=== PATIENT | male | born 1935 | race Caucasian/White ===

== ENCOUNTER 2017-06-29 09:00 | Inpatient (IN) ==
[2017-06-29] MEDS ORDERED: ALBUTEROL/IPRATROPIUM 3 ML NEB RESP TX PRN (09:16)
[2017-06-29] MEDS ORDERED: GLUCAGON 1 MG VIAL IM PRN (09:16)
[2017-06-29] MEDS ORDERED: DEXTROSE 50% 25 GM/50 ML VIAL IV PRN (09:16)
[2017-06-29] MEDS ORDERED: BENZONATATE 100 MG CAPSULE PO PRN (09:22)
--- NOTE | 2017-06-29 09:25 | Pulmonology History & Physical ---
History of Present Illness Chief complaint: bronchitis with bronchospasm outpt tx failure possible pneumonia History of present illness: RONAN Sauceda-Rosalind acting as scribe for Dr. Zacarias Palomino. Mr. Gonzalez is an 81 year old /White male admitted today 06/29/17 as a [place] [facility] [place] was seen initially on 06/26/17 by Monisha FERRARO at the office with complaints of increased shortness of breath, cough with white sputum production, and near syncopal episode. He had a temperature of 99.2 at that visit and his WBC count was 12,000 which was felt to be normal r/t his chronic prednisone use. At that time patient had completed a 2 week course of Augmentin, and had recently started Amoxicillin per Dr. Reich. He was seen by Dr. Palomino at that time and Dr. Palomino reviewed his CXR. Dr. Palomino felt like a lot of his symptoms were from GERD with microaspiration and instructed him to continue his antibiotics, increase his prednisone to 10mg daily for 10 days then back to his daily dose of 5mg a day. He was also given an Anoro inhaler for use. He was also educated regarding reflux precautions to prevent reflux and microaspiration. He presented back to see Monisha FERRARO again today with complaints that his symptoms were worse. He admitted continual increased shortness of breath, worsened cough with production of toribio/brown sputum, weakness, and feelings like he cannot catch his breath. 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 Argenis Her. He only held this for 1 week while he was on the Augmentin previously, he was instructed to hold this until further notice at his appointment on 06/26/17. He also has a history of esophageal revision surgery and has not followed with GI for several years. Due to the severity of his symptoms which have been refractory to multiple outpatient treatments and his past medical history decision was made to admit today to inpatient for further evaluation and treatment. He admits fatigue, malaise, night sweats, headaches, shortness of breath, wheezing, cough, and sputum production. He denies any cardiac angina, palpitations, any further near syncopal episodes, dizziness, fever, chills, body aches, hemoptysis, nausea/vomiting/diarrhea, urinary tract symptoms, and symptoms of TIAs. He did admit frequent episodes of reflux. The remainder of the review of systems is negative. ALLERGIES: IVP DYE(per clinic records), REGLAN (per hospital record). Home Medicines: ASA 81mg daily, Ally 180mg daily for allergies, Amaryl 4mg twice a day, Anoro Ellipta 1 puff daily, B complete vitamin daily, Coreg 6.25mg twice a day, Docusate sodium daily, Fish Oil 1,000mg (120mg-180mg) daily, Folic acid 1mg daily except day of methotrexate, Devon 10/325mg three times per day, Lasix 40mg 2 tablets twice a day, Mag64 1 tablet at bedtime, Metformin 500mg twice a day with meals, Robaxin 500mg daily, Multivitamin daily, Neurontin 600mg three times a day, Omeprazole 20mg daily before a meal, Protonix 40mg daily before a meal, Miralax 17g/dose twice a day, Potassium 10meQ daily, Prednisone 5mg BID, Promethazine 25mg q6h as needed, Synthroid 175mcg daily, tramadol 50mg daily, Trazodone 150mg qhs, Methotrexate 10mg once weekly on Wednesdays, Vitamin C 1G daily, Vitamin D3 2,000 units daily. These medications are per his clinic list this morning 06/29/17. The home medications he listed per hospital records has some differences, so I am not sure what he is actually taking. Past History: Anemia, patient has been referred to Hematology by his Ortho Rn Dr. Her but he did not go to this appointment. CAD. CHF. Mitral valve disorder followed by Dr. Patel. Non-insulin dependent diabetes mellitus type II A1c 6.8 in March. 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 GERD. Hyperlipidemia. Hypertension. Hypothyroidism. Obstructive sleep apnea not CPap dependent, but nocturnal o2 dependent. Chronic constipation. History of pneumonia. 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 Knee surgery. Family History: Father had AK, mother had sudden of unknown cause. Social History: High school graduate. . Denies alcohol. Never a smoker. Labs, CXR, and EKG are pending. Home Medications Medication Instructions Recorded Confirmed Type Aspirin [Ecotrin] 81 mg PO DAILY 07/01/15 06/29/17 History B-Complex with Vitamin C [Vitamin 1 each PO BEDTIME 07/01/15 06/29/17 History B-Complex with Vit C] Carvedilol [Coreg] 6.25 mg PO BID 07/01/15 06/29/17 History Cholecalciferol (Vitamin D3) 2,000 unit PO BEDTIME 07/01/15 06/29/17 History [Vitamin D3] Docusate Sodium Cap [Colace Cap] 100 mg PO BEDTIME 07/01/15 06/29/17 History Furosemide Tab [Lasix Tab] 80 mg PO BID DIURETIC 07/01/15 06/29/17 History Gabapentin 600 mg PO TID 07/01/15 06/29/17 History Levothyroxine Tab [Synthroid Tab] 175 mcg PO DAILY 07/01/15 06/29/17 History Magnesium Chloride [Slow Mag] 64 mg PO BEDTIME 07/01/15 06/29/17 History Multivitamin (Centrum) [Centrum 1 tablet PO BEDTIME 07/01/15 06/29/17 History Tab] Smoaks-3 Fatty Acids [Fish Oil 1,000 mg PO BEDTIME 07/01/15 06/29/17 History Concentrate] Pantoprazole Sodium 40 mg PO DAILY 07/01/15 06/29/17 History Ascorbic Acid Tab [Vitamin C Tab] 1,000 mg PO DAILY 08/20/15 06/29/17 History Potassium Chloride [Klor-Con M10] 20 meq PO DAILY 08/20/15 06/29/17 History Glimepiride 4 mg PO BID 11/20/16 06/29/17 History Lactulose Liquid [Chronulac] 15 mg PO DAILY PRN 11/20/16 06/29/17 History Methocarbamol Tab [Robaxin Tab] 500 mg PO DAILY PRN 11/20/16 06/29/17 History Polyethylene Glycol 3350 17 gm PO DAILY 11/20/16 06/29/17 History metFORMIN [Glucophage] 500 mg PO BID 11/20/16 06/29/17 History predniSONE TAB [PredniSONE] 10 mg PO DAILY #21 tablet 11/22/16 06/29/17 Rx Folic Acid 1 mg PO DAILY 06/29/17 06/29/17 History traZODone [Desyrel] 150 mg PO BEDTIME 06/29/17 06/29/17 History Allergies Allergy/AdvReac Type Severity Reaction Status Date / Time iodine Allergy Unknown Verified 12/02/15 17:56 Iodinated Contrast Media - AdvReac Severe Difficulty Verified 01/29/15 10:08 Oral and Breathing [Iodinated Contrast Media - IV Dye] metoclopramide [From Reglan] AdvReac Severe Agitated Verified 01/29/15 10:06 Medical,Surgical,& Family Hx - Medical History Cardio: History of: CHF, CAD, Hypertension Endocrine: History of: Diabetes Mellitus (NIDDM), Thyroid Disorder Respiratory: History of: COPD Renal: History of: Renal Failure Gastrointestinal: History of: GERD Musculoskeletal: History of: Back/Neck Problems (HAS INPLANTED PAIN PUMP) Hematology: No history of: Blood Transfusion Reaction - Surgical History Cardiac Surgeries: Sugical HX of: Cardiac Catheterization, Cardiac Surgery ( bypass 13 years ago) Thoracic Surgeries: Patient denies;: Organ Transplant Abdominal Surgeries: Patient denies: Abdominal Surgery Orthopedic Surgeries: Surgical HX of;: Total Knee Replacement (BILATERAL) - Family History Family History: Reports;: Family Cancer (father), Family Stroke - Social History Smoking Status: Never smoker Results - Labs CBC & BMP: 06/29/17 09:51 06/29/17 09:51 Lab Results: I have reviewed the past 24 hour labs Exam (Pulmonay) H&P - Constitutional Exam: Psychiatric: Awake, alert oriented x 3. Acutely ill appearing. Neurological: Cranial nerves intact with decreased hearing acuity bilaterally. Long tract motor function is intact. Sensory and gait were not tested. HEENT: Pupils, irises, sclera, conjunctiva and eyelids are normal. The face is symmetrical with no rash and no masses. Nares normal. Nasal tubinates are erythematous and swollen. Ears deferred. Lips, tongue, and oral mucosa normal. Pharynx is slightly inflamed. Neck: Symmetrical and kyphotic. Thyroid was not palpated. Lymphatic: No submandibular, cervical, supraclavicular, or epitrochlear adenopathy. Chest: Chest is symmetrical, kyphotic, and slightly hyperinflated. Large airway/ tracheal expiratory wheezing noted with loose large airway congestion. Also has high pitched enc expiratory peripheral wheezing with significant rhonchi heard most prominently in the left base. Heart: Regular rate and rhythm. No murmurs or gallops. Abdomen: Nontender, nondistended, no appreciable organomegaly. Bowel sounds normal. Abdominal obesity is present. Musculoskeletal: Age appropriate loss of the normal curvature of the cervical thoracic and lumbar spine. Extremities: No clubbing. No evidence of deep venous thrombophlebitis. Mild nonpitting pretibial edema present bilaterally. Arterial exam: Carotids decreased. No bruits. Upper and lower extremity pulses palpable. Venous exam: Normal. Skin: Skin of the exposed examined areas no cancerous or infectious lesions. The remainder of the physical exam is negative. Impression: 1. Acute bronchitis with bronchospasm, refractory to outpatient treatment. 2. Severe shortness of breath, productive cough, and wheezing secondary to #1. 3. Bronchospastic airway disease. 4. Possible left lower lung pneumonia, CXR, sputums, and blood cultures are pending. 5. History of COPD/Asthma. 6. Hypertension 7. GERD with suspected microaspiration. 8. Non-insulin dependent type II diabetes mellitus. 9. 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 10. See past history. Plan: 1. Admit to inpatient for further evaluation and treatment. 2. SoluMedrol 62.5mg every 8 hours. Accuchecks AC/HS and PRN with low sliding scale. 3. IV Levaquin and Fortaz due to outpt tx failure. 4. Sputum for gram stain C&S, Blood cultures x 3, Legionella, Cold agglutinins, Labs as ordered. 5. CXR today 6. ID and continue home meds except methotrexate. 7. Strict reflux precautions. 8. See orders.
--- NOTE | 2017-06-29 09:58 | EKG Report ---
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
[2017-06-29 10:16] LABS: Basophils % 0.2 % (0.0-0.8); Hematocrit 28.1 VOL% (42.0-52.0); Hemoglobin 9.6 GM/DL (14.0-18.0); Immature Granulocytes % 2.2 %; Immature Granulocytes Absolute 0.18 #; Lymphocytes # 0.9 10*3/uL (1.4-4.0); Lymphocytes % 10.2 % (21.2-54.2); Mean Corpuscular HGB Conc 34.2 GM/DL (32-36); Mean Corpuscular Hemoglobin 34 PG (27-34); Mean Corpuscular Volume 98.9 FL (87-102); Mean Platelet Volume 12.9 FL (9.6-12.0); Monocytes # 1.1 10*3/uL (0.11-0.8); Monocytes % 13.3 % (1.7-12.7); NRBC # 0.13 10*3/uL; Neutrophils # 6.2 10*3/uL (1.4-7.4); Neutrophils % 74.1 % (38.7-73.9); Platelet Count 174 T/CUMM (130-400); Red Blood Count 2.84 MC/CUMM (3.8-5.5); White Blood Count 8.4 T/CUMM (4-12)
[2017-06-29 11:06] LABS: Albumin 3.6 G/DL (3.4-5.0); Bilirubin,Total 0.5 MG/DL (0.2-1.0); Calcium 8.7 MG/DL (8.5-10.1); Magnesium 1.7 MG/DL (1.8-2.4); Osmolality,Calculated 283.5 MOS/KG (273-304); Potassium 4.3 MMOL/L (3.5-5.1); Total Protein 6.5 G/DL (6.4-8.3)
[2017-06-29] MEDS: ALBUTEROL/IPRATROPIUM 3 ML NEB RESP TX SCH ×3 (11:13→19:07)
[2017-06-29] MEDS: INSULIN LISPRO 100 UNIT/ML SUBCUT SCH ×3 (11:15→21:58)
[2017-06-29] MEDS: methylPREDNISolone SOD SUC 125 MG/2 ML VIAL IV SCH ×3 (11:52→16:32)
[2017-06-29] MEDS: LEVOFLOXACIN INJ 500 MG in PREMIX 1 EACH IV SCH (11:53)
--- NOTE | 2017-06-29 13:43 | XRay Report ---
XR chest 2V Indication: Shortness of breath. Comparison: Chest x-ray 11/20/2016. Technique: PA and lateral chest x-ray was performed. Findings: Moderate cardiomegaly prior sternotomy appears stable. There is been some interval partial clearing of the left lung base with persistent reticular linear interstitial markings noted bilaterally. Airspace opacities in the right cardiophrenic angle also demonstrate minimal improvement. The upper lungs are clear. Remote rib fractures involving the upper right rib cage are stable. Impression: 1. Interval partial clearing of the lung bases may reflect improving atelectasis and/or pulmonary edema. 06/29/2017 1:39 PM PROCEDURE INTERPRETED AT [facility] DEPARTMENT OF RADIOLOGY Final Report Signed by: Dr. Jose Eduardo Pulliam
[2017-06-29] MEDS ORDERED: LACTULOSE 20 GM/30 ML UDCUP PO PRN (15:36)
[2017-06-29] MEDS ORDERED: METHOCARBAMOL 500 MG TABLET PO PRN (15:36)
[2017-06-29 15:49] LABS: Apearance,Urine CLEAR (Clear); Bilirubin,Urine Negative (Negative); Blood, Urine Negative (Negative); Glucose,Urine (UA) Negative (Negative); Ketones,Urine Negative (Negative); Nitrite,Urine Negative (Negative); Protein,Urine Negative; RBC,Urine 1 /HPF (0-4); Urine Color Yellow (Yellow); Urine Specific Gravity 1.009 (1.001-1.035); Urine Urobilinogen < 2.0 EU/DL (0.2-1.0); WBC,Urine 1 /HPF (0-6)
[2017-06-29] MEDS: MAGNESIUM CHLORIDE 64 MG TABLET PO SCH ×2 (16:24→21:49)
[2017-06-29] MEDS: FUROSEMIDE 80 MG TABLET PO SCH (16:24)
[2017-06-29 17:32] LABS: % Iron Saturation 19.4 % (18-50); Ferritin 245.6 ng/ml (26-388)
[2017-06-29 17:38] LABS: Folate > 24.0 NG/ML (5.4-24.0); Vitamin B12 959 PG/ML (211-911)
[2017-06-29] MEDS ORDERED: MAGNESIUM CHLORIDE 64 MG TABLET PO SCH (21:00)
[2017-06-29] MEDS: DOCUSATE SODIUM 100 MG CAPSULE PO SCH (21:47)
[2017-06-29] MEDS: MONTELUKAST 10 MG TABLET PO SCH (21:47)
[2017-06-29] MEDS: CHOLECALCIFEROL 1,000 UNIT TABLET PO SCH (21:48)
[2017-06-29] MEDS: GABAPENTIN 600 MG TABLET PO SCH (21:48)
[2017-06-29] MEDS: CARVEDILOL 6.25 MG TABLET PO SCH (21:49)
[2017-06-29] MEDS: PANTOPRAZOLE 40 MG TABLET PO SCH (21:50)
[2017-06-29] MEDS: GLIMEPIRIDE 4 MG TABLET PO SCH (21:50)
[2017-06-29] MEDS: metFORMIN 500 MG TABLET PO SCH (21:50)
[2017-06-29] MEDS: MULTIVITAMIN (CENTRUM) TABLET PO SCH (21:58)
[2017-06-30] MEDS: methylPREDNISolone SOD SUC 125 MG/2 ML VIAL IV SCH ×4 (01:09→17:07)
[2017-06-30 05:19] LABS: Basophils % 0.1 % (0.0-0.8); Hematocrit 28.5 VOL% (42.0-52.0); Hemoglobin 9.6 GM/DL (14.0-18.0); Immature Granulocytes % 2.9 %; Immature Granulocytes Absolute 0.23 #; Lymphocytes # 0.8 10*3/uL (1.4-4.0); Lymphocytes % 10.4 % (21.2-54.2); Mean Corpuscular HGB Conc 33.7 GM/DL (32-36); Mean Corpuscular Hemoglobin 33 PG (27-34); Mean Corpuscular Volume 98.3 FL (87-102); Mean Platelet Volume 12.7 FL (9.6-12.0); Monocytes # 0.9 10*3/uL (0.11-0.8); Monocytes % 11.2 % (1.7-12.7); NRBC # 0.04 10*3/uL; Neutrophils # 5.9 10*3/uL (1.4-7.4); Neutrophils % 75.4 % (38.7-73.9); Platelet Count 178 T/CUMM (130-400); White Blood Count 7.9 T/CUMM (4-12)
[2017-06-30 05:46] LABS: Calcium 8.7 MG/DL (8.5-10.1); Osmolality,Calculated 283.7 MOS/KG (273-304); Potassium 4.1 MMOL/L (3.5-5.1)
[2017-06-30] MEDS: ALBUTEROL/IPRATROPIUM 3 ML NEB RESP TX SCH ×4 (07:50→19:32)
[2017-06-30] MEDS: GABAPENTIN 600 MG TABLET PO SCH ×3 (08:21→20:40)
[2017-06-30] MEDS: INSULIN LISPRO 100 UNIT/ML SUBCUT SCH ×4 (08:21→20:39)
[2017-06-30] MEDS: LEVOTHYROXINE 175 MCG TABLET PO SCH (08:21)
[2017-06-30] MEDS: GLIMEPIRIDE 4 MG TABLET PO SCH ×2 (08:22→20:40)
[2017-06-30] MEDS: PANTOPRAZOLE 40 MG TABLET PO SCH ×2 (08:22→20:39)
[2017-06-30] MEDS: CARVEDILOL 6.25 MG TABLET PO SCH ×2 (08:22→17:06)
[2017-06-30] MEDS: POTASSIUM CHLORIDE 20 MEQ TABLET PO SCH (08:22)
[2017-06-30] MEDS: metFORMIN 500 MG TABLET PO SCH ×2 (08:22→20:40)
[2017-06-30] MEDS: FOLIC ACID 1 MG TABLET PO SCH (08:22)
[2017-06-30] MEDS: MONTELUKAST 10 MG TABLET PO SCH ×2 (08:22→20:40)
[2017-06-30] MEDS: FUROSEMIDE 80 MG TABLET PO SCH ×2 (08:23→17:06)
[2017-06-30] MEDS: ASPIRIN EC 81 MG TABLET PO SCH (08:23)
[2017-06-30] MEDS: POLYETHYLENE GLYCOL POWDER 17 GM PACK PO SCH (08:27)
[2017-06-30] MEDS: MAGNESIUM CHLORIDE 64 MG TABLET PO SCH ×2 (08:27→20:40)
[2017-06-30] MEDS: LEVOFLOXACIN INJ 500 MG in PREMIX 1 EACH IV SCH (08:54)
--- NOTE | 2017-06-30 12:20 | Pulmonology Progress Note ---
Pulmonary - PN: Subj Interval history: Aram Johns, [facility] acting as scribe for Dr. Zacarias Palomino Mr. Gonzalez is an 81-year-old white male who was [facility]. At the time of admission, our impressions were: 1. Acute bronchitis with bronchospasm, refractory to outpatient treatment. 2. Severe shortness of breath, productive cough, and wheezing secondary to #1. 3. Bronchospastic airway disease. 4. Possible left lower lung pneumonia, CXR, sputums, and blood cultures are pending. 5. History of COPD/Asthma. 6. Hypertension 7. GERD with suspected microaspiration. 8. Non-insulin dependent type II diabetes mellitus. 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 10. See past history. 06/30/2017. The patient was seen today along with a male family member and Sirena Sims RN. Patient states that his respiratory status has already improved in less than 24 hours while being inpatient. Chest x-ray today shows hyperinflation and an acute lingular infiltrate that is more prominent on today' s x-ray done was done [facility]. He is on Fortaz and Levaquin. Sputum Gram stain showed few gram-positive cocci in clusters and pairs and rare gram negative rods. Sputum cultures pending. Blood cultures are negative thus far. He has remained afebrile. Cold agglutinins are negative and Legionella is pending. He is anemic, but iron studies did not reveal iron deficiency anemia. B12 and folate levels are normal. Medications have been reviewed. We made no changes today. Labs been reviewed. White count is 7900 with 75.4% segs; H&H 9.6/28.5; platelet count 178,000; creatinine has improved to 1.10, BUN 30, electrolytes are normal; magnesium was low at 1.7 yesterday and his magnesium dose was increased; urinalysis showed no evidence of infection Exam (Progress Note) - Constitutional Vitals: Period Temp Pulse Resp BP Sys/Malone Pulse Ox Last 24 Hr 97.4 F-98.0 F 60-86 16-20 142-162/73-94 90-99 Exam: Chest is hyperinflated with prolonged expiration but improved wheezing Heart no gallop Abdomen is nontender and nondistended; bowel sounds are positive 4 Extremities with nothing to suggest acute deep venous thrombophlebitis Psychiatric oriented 3 Neurologic long-term motor function is intact Plan: Continue present treatment. Repeat labs in the morning. Repeat chest x- ray on Monday. Follow-up sputum culture when available. See orders. Results - Labs CBC & BMP: 06/30/17 04:57 06/30/17 04:57
[2017-06-30] MEDS: CHOLECALCIFEROL 1,000 UNIT TABLET PO SCH (20:39)
[2017-06-30] MEDS: MULTIVITAMIN (CENTRUM) TABLET PO SCH (20:39)
[2017-06-30] MEDS: DOCUSATE SODIUM 100 MG CAPSULE PO SCH (20:39)
[2017-07-01] MEDS: methylPREDNISolone SOD SUC 125 MG/2 ML VIAL IV SCH ×3 (00:47→17:47)
[2017-07-01 04:35] LABS: Basophils % 0.1 % (0.0-0.8); Hematocrit 30.7 VOL% (42.0-52.0); Hemoglobin 9.9 GM/DL (14.0-18.0); Immature Granulocytes % 2.3 %; Immature Granulocytes Absolute 0.24 #; Lymphocytes # 0.8 10*3/uL (1.4-4.0); Mean Corpuscular HGB Conc 32.2 GM/DL (32-36); Mean Corpuscular Hemoglobin 33 PG (27-34); Mean Platelet Volume 13.8 FL (9.6-12.0); Monocytes # 0.9 10*3/uL (0.11-0.8); Monocytes % 8.7 % (1.7-12.7); NRBC # 0.05 10*3/uL; Neutrophils # 8.3 10*3/uL (1.4-7.4); Neutrophils % 80.9 % (38.7-73.9); Platelet Count 209 T/CUMM (130-400); Red Blood Count 3.04 MC/CUMM (3.8-5.5); Red Cell Distribution Width 20.5 % (9.3-17.3); White Blood Count 10.3 T/CUMM (4-12)
[2017-07-01 05:04] LABS: Calcium 8.8 MG/DL (8.5-10.1); Osmolality,Calculated 285.7 MOS/KG (273-304); Potassium 4.3 MMOL/L (3.5-5.1)
[2017-07-01] MEDS: ALBUTEROL/IPRATROPIUM 3 ML NEB RESP TX SCH ×4 (07:32→19:09)
[2017-07-01] MEDS: PANTOPRAZOLE 40 MG TABLET PO SCH ×2 (08:55→20:53)
[2017-07-01] MEDS: MONTELUKAST 10 MG TABLET PO SCH ×2 (08:55→20:52)
[2017-07-01] MEDS: POTASSIUM CHLORIDE 20 MEQ TABLET PO SCH (08:55)
[2017-07-01] MEDS: metFORMIN 500 MG TABLET PO SCH ×2 (08:55→20:52)
[2017-07-01] MEDS: LEVOTHYROXINE 175 MCG TABLET PO SCH (08:55)
[2017-07-01] MEDS: MAGNESIUM CHLORIDE 64 MG TABLET PO SCH ×2 (08:55→20:52)
[2017-07-01] MEDS: FUROSEMIDE 80 MG TABLET PO SCH ×2 (08:55→15:26)
[2017-07-01] MEDS: GLIMEPIRIDE 4 MG TABLET PO SCH ×2 (08:55→20:52)
[2017-07-01] MEDS: FOLIC ACID 1 MG TABLET PO SCH (08:55)
[2017-07-01] MEDS: GABAPENTIN 600 MG TABLET PO SCH ×3 (08:55→20:52)
[2017-07-01] MEDS: LEVOFLOXACIN INJ 500 MG in PREMIX 1 EACH IV SCH (08:58)
[2017-07-01] MEDS: POLYETHYLENE GLYCOL POWDER 17 GM PACK PO SCH (08:58)
[2017-07-01] MEDS: ASPIRIN EC 81 MG TABLET PO SCH (08:58)
[2017-07-01] MEDS: CARVEDILOL 6.25 MG TABLET PO SCH ×2 (08:58→17:46)
[2017-07-01] MEDS: INSULIN LISPRO 100 UNIT/ML SUBCUT SCH ×4 (09:26→20:55)
--- NOTE | 2017-07-01 16:33 | Pulmonology Progress Note ---
Pulmonary - PN: Subj Interval history: Mr. Gonzalez is an 81-year-old white male who was admitted [facility]/29/[facility]. At the time of admission, our impressions were: 1. Acute bronchitis with bronchospasm, refractory to outpatient treatment. 2. Severe shortness of breath, productive cough, and wheezing secondary to #1. 3. Bronchospastic airway disease. 4. Possible left lower lung pneumonia, CXR, sputums, and blood cultures are pending. 5. History of COPD/Asthma. 6. Hypertension 7. GERD with suspected microaspiration. 8. Non-insulin dependent type II diabetes mellitus. 9. jail use of methotrexate. 10. See past history. 06/30/2017. The patient was seen today along with a male family member and Sirena Sims RN. Patient states that his respiratory status has already improved in less than 24 hours while being inpatient. Chest x-ray today shows hyperinflation and an acute lingular infiltrate that is more prominent on today' s x-ray done was done yesterday at [facility]. He is on Fortaz and Levaquin. Sputum Gram stain showed few gram-positive cocci in clusters and pairs and rare gram negative rods. Sputum cultures pending. Blood cultures are negative thus far. He has remained afebrile. Cold agglutinins are negative and Legionella is pending. He is anemic, but iron studies did not reveal iron deficiency anemia. B12 and folate levels are normal. Medications have been reviewed. We made no changes today. Labs been reviewed. White count is 7900 with 75.4% segs; H&H 9.6/28.5; platelet count 178,000; creatinine has improved to 1.10, BUN 30, electrolytes are normal; magnesium was low at 1.7 yesterday and his magnesium dose was increased; urinalysis showed no evidence of infection 07/01/2017. Patient's quite a bit better today he is been able to get up and walk in the [place]. He still short of breath and has dyspnea on exertion. He is begun to mobilize some sputum. On chest exam he has less wheezing than he had before. There are no positive cultures. Creatinine is 1.202 BUN of 33 electrolytes are normal. CBC is stable. Thyroid function tests are normal range. Vitamin B12 and folic acid are also normal. His iron is low and is being replaced. Exam (Progress Note) - Constitutional Vitals: Period Temp Pulse Resp BP Sys/Malone Pulse Ox Last 24 Hr 97.4 F-98.0 F 60-86 16-20 142-162/73-94 90-99 Exam: Face. Symmetrical. No edema. Neck. Symmetrical. No meningismus. Lymphatics. No submandibular cervical supraclavicular or epitrochlear adenopathy. Chest is hyperinflated with prolonged expiration but improved wheezing Heart no gallop Abdomen is nontender and nondistended; bowel sounds are positive 4 Extremities with nothing to suggest acute deep venous thrombophlebitis Psychiatric oriented 3 Neurologic long-term motor function is intact Plan: 06/30/2017. 1. Continue present treatment. 2. Repeat labs in the morning. 3. Repeat chest x-ray on Monday. 4. Follow-up sputum culture when available. 6. See orders. 07/01/2017. 1. See my note above. 2. Improved exercise tolerance. Exam (Progress Note) - Constitutional Vitals: Period Temp Pulse Resp BP Sys/Malone Pulse Ox Last 24 Hr 97 F-98.3 F 65-77 16-20 138-151/59-75 94-100 Results - Labs CBC & BMP: 07/01/17 02:28 07/01/17 02:28
[2017-07-01] MEDS: MULTIVITAMIN (CENTRUM) TABLET PO SCH (20:52)
[2017-07-01] MEDS: DOCUSATE SODIUM 100 MG CAPSULE PO SCH (20:52)
[2017-07-01] MEDS: CHOLECALCIFEROL 1,000 UNIT TABLET PO SCH (20:52)
[2017-07-01] MEDS: MULTIVITAMIN (BEROCCA) TABLET PO SCH (20:55)
[2017-07-01] MEDS: OMEGA 3 ACID ETHYL ESTERS 1 GM CAPSULE PO SCH (20:55)
[2017-07-02] MEDS: methylPREDNISolone SOD SUC 125 MG/2 ML VIAL IV SCH ×3 (00:33→18:18)
[2017-07-02 06:48] LABS: Basophils % 0.1 % (0.0-0.8); Hemoglobin 9.5 GM/DL (14.0-18.0); Immature Granulocytes % 1.8 %; Immature Granulocytes Absolute 0.22 #; Lymphocytes # 0.5 10*3/uL (1.4-4.0); Lymphocytes % 4.4 % (21.2-54.2); Mean Corpuscular HGB Conc 32.8 GM/DL (32-36); Mean Corpuscular Hemoglobin 33 PG (27-34); Mean Platelet Volume 13.1 FL (9.6-12.0); Monocytes # 0.9 10*3/uL (0.11-0.8); Monocytes % 7.2 % (1.7-12.7); Neutrophils # 10.4 10*3/uL (1.4-7.4); Neutrophils % 86.5 % (38.7-73.9); Platelet Count 188 T/CUMM (130-400); Red Cell Distribution Width 20.7 % (9.3-17.3)
[2017-07-02 07:24] LABS: Calcium 8.2 MG/DL (8.5-10.1); Osmolality,Calculated 292.4 MOS/KG (273-304); Potassium 4.1 MMOL/L (3.5-5.1)
[2017-07-02] MEDS: ALBUTEROL/IPRATROPIUM 3 ML NEB RESP TX SCH ×4 (07:27→20:25)
[2017-07-02 07:28] LABS: Macrocytosis 2+; Platelet Estimate Decreased; Polychromasia Slight; Target Cells Slight
[2017-07-02] MEDS: POTASSIUM CHLORIDE 20 MEQ TABLET PO SCH (08:43)
[2017-07-02] MEDS: MAGNESIUM CHLORIDE 64 MG TABLET PO SCH ×2 (08:43→20:15)
[2017-07-02] MEDS: LEVOTHYROXINE 175 MCG TABLET PO SCH (08:43)
[2017-07-02] MEDS: FOLIC ACID 1 MG TABLET PO SCH (08:43)
[2017-07-02] MEDS: PANTOPRAZOLE 40 MG TABLET PO SCH ×2 (08:44→20:15)
[2017-07-02] MEDS: GABAPENTIN 600 MG TABLET PO SCH ×3 (08:44→20:16)
[2017-07-02] MEDS: GLIMEPIRIDE 4 MG TABLET PO SCH ×2 (08:44→20:16)
[2017-07-02] MEDS: MONTELUKAST 10 MG TABLET PO SCH ×2 (08:44→20:16)
[2017-07-02] MEDS: metFORMIN 500 MG TABLET PO SCH ×2 (08:44→20:15)
[2017-07-02] MEDS: LEVOFLOXACIN INJ 500 MG in PREMIX 1 EACH IV SCH (08:44)
[2017-07-02] MEDS: POLYETHYLENE GLYCOL POWDER 17 GM PACK PO SCH (08:44)
[2017-07-02] MEDS: ASPIRIN EC 81 MG TABLET PO SCH (08:44)
[2017-07-02] MEDS: CARVEDILOL 6.25 MG TABLET PO SCH ×2 (08:44→16:22)
[2017-07-02] MEDS: FUROSEMIDE 80 MG TABLET PO SCH ×2 (08:44→16:22)
[2017-07-02] MEDS: INSULIN LISPRO 100 UNIT/ML SUBCUT SCH ×4 (08:46→20:16)
[2017-07-02] MEDS ORDERED: SODIUM PHOSPHATE ENEMA 133 ML BOTTLE RECTAL PRN (10:14)
[2017-07-02] MEDS: miSOPROStol 200 MCG TABLET PO SCH (11:43)
--- NOTE | 2017-07-02 13:41 | Pulmonology Progress Note ---
Pulmonary - PN: Subj Interval history: Mr. Gonzalez is an 81-year-old white male who was admitted [facility]/29/2017 from [facility]. At the time of admission, our impressions were: 1. Acute bronchitis with bronchospasm, refractory to outpatient treatment. 2. Severe shortness of breath, productive cough, and wheezing secondary to #1. 3. Bronchospastic airway disease. 4. Possible left lower lung pneumonia, CXR, sputums, and blood cultures are pending. 5. History of COPD/Asthma. 6. Hypertension 7. GERD with suspected microaspiration. 8. Non-insulin dependent type II diabetes mellitus. 9. correction use of methotrexate. 10. See past history. 06/30/2017. The patient was seen today along with a male family member and Sirena Sims RN. Patient states that his respiratory status has already improved in less than 24 hours while being inpatient. Chest x-ray today shows hyperinflation and an acute lingular infiltrate that is more prominent on today' s x-ray done was done yesterday at [facility]. He is on Fortaz and Levaquin. Sputum Gram stain showed few gram-positive cocci in clusters and pairs and rare gram negative rods. Sputum cultures pending. Blood cultures are negative thus far. He has remained afebrile. Cold agglutinins are negative and Legionella is pending. He is anemic, but iron studies did not reveal iron deficiency anemia. B12 and folate levels are normal. Medications have been reviewed. We made no changes today. Labs been reviewed. White count is 7900 with 75.4% segs; H&H 9.6/28.5; platelet count 178,000; creatinine has improved to 1.10, BUN 30, electrolytes are normal; magnesium was low at 1.7 yesterday and his magnesium dose was increased; urinalysis showed no evidence of infection 07/01/2017. Patient's quite a bit better today he is been able to get up and walk in the [place]. He still short of breath and has dyspnea on exertion. He is begun to mobilize some sputum. On chest exam he has less wheezing than he had before. There are no positive cultures. Creatinine is 1.202 BUN of 33 electrolytes are normal. CBC is stable. Thyroid function tests are normal range. Vitamin B12 and folic acid are also normal. His iron is low and is being replaced. 07/02/2017. This man continues to improve on a daily basis. He is been able to get up and walk around some. He continues to localize copious amounts of discolored sputum. His fever is resolving. He could be ready for discharge another day or 2. White blood cell count is 12,000 with 86.5 segs. H&H is 9.5/ 30.0. Electrolytes are normal. Creatinine is 1.2 with a BUN of 34. He has some Tashia albicans in his sputum. No bacteria have grown. He is due for follow-up chest x-ray soon and he could be ready for discharge by 07/04/2017 Exam (Progress Note) - Constitutional Vitals: Period Temp Pulse Resp BP Sys/Malone Pulse Ox Last 24 Hr 97.4 F-98.0 F 60-86 16-20 142-162/73-94 90-99 Exam: Face. Symmetrical. No edema. Neck. Symmetrical. No meningismus. Lymphatics. No submandibular cervical supraclavicular or epitrochlear adenopathy. Chest is hyperinflated with prolonged expiration and very little wheezing Heart no gallop Abdomen is nontender and nondistended; bowel sounds are positive 4 Extremities with nothing to suggest acute deep venous thrombophlebitis Psychiatric oriented 3 Neurologic long-term motor function is intact Plan: 06/30/2017. 1. Continue present treatment. 2. Repeat labs in the morning. 3. Repeat chest x-ray on Monday. 4. Follow-up sputum culture when available. 6. See orders. 07/01/2017. 1. See my note above. 2. Improved exercise tolerance. 07/02/2017. 1. See today's note above 2. Anticipate 07/03/2017 discharge. 3. Need follow-up chest Exam (Progress Note) - Constitutional Vitals: Period Temp Pulse Resp BP Sys/Malone Pulse Ox Last 24 Hr 97.1 F-98 F 73-89 18-20 128-150/64-73 90-99 Results - Labs CBC & BMP: 07/02/17 06:26 07/02/17 06:26
[2017-07-02] MEDS: MULTIVITAMIN (CENTRUM) TABLET PO SCH (20:15)
[2017-07-02] MEDS: CHOLECALCIFEROL 1,000 UNIT TABLET PO SCH (20:15)
[2017-07-02] MEDS: MULTIVITAMIN (BEROCCA) TABLET PO SCH (20:16)
[2017-07-02] MEDS: OMEGA 3 ACID ETHYL ESTERS 1 GM CAPSULE PO SCH (20:16)
[2017-07-02] MEDS: DOCUSATE SODIUM 100 MG CAPSULE PO SCH (20:16)
[2017-07-03] MEDS: methylPREDNISolone SOD SUC 125 MG/2 ML VIAL IV SCH ×3 (00:40→17:16)
[2017-07-03] MEDS: ALBUTEROL/IPRATROPIUM 3 ML NEB RESP TX SCH ×4 (08:29→19:16)
[2017-07-03] MEDS: miSOPROStol 200 MCG TABLET PO SCH (09:10)
[2017-07-03] MEDS: MAGNESIUM CHLORIDE 64 MG TABLET PO SCH ×2 (09:10→21:52)
[2017-07-03] MEDS: GLIMEPIRIDE 4 MG TABLET PO SCH ×2 (09:10→21:52)
[2017-07-03] MEDS: CARVEDILOL 6.25 MG TABLET PO SCH ×2 (09:10→16:40)
[2017-07-03] MEDS: INSULIN LISPRO 100 UNIT/ML SUBCUT SCH ×4 (09:11→21:53)
[2017-07-03] MEDS: FOLIC ACID 1 MG TABLET PO SCH (09:11)
[2017-07-03] MEDS: FUROSEMIDE 80 MG TABLET PO SCH ×2 (09:11→16:39)
[2017-07-03] MEDS: LEVOTHYROXINE 175 MCG TABLET PO SCH (09:11)
[2017-07-03] MEDS: MONTELUKAST 10 MG TABLET PO SCH ×2 (09:11→21:52)
[2017-07-03] MEDS: ASPIRIN EC 81 MG TABLET PO SCH (09:11)
[2017-07-03] MEDS: metFORMIN 500 MG TABLET PO SCH ×2 (09:11→21:52)
[2017-07-03] MEDS: GABAPENTIN 600 MG TABLET PO SCH ×3 (09:11→21:51)
[2017-07-03] MEDS: POTASSIUM CHLORIDE 20 MEQ TABLET PO SCH (09:11)
[2017-07-03] MEDS: PANTOPRAZOLE 40 MG TABLET PO SCH ×2 (09:11→21:53)
[2017-07-03] MEDS: LEVOFLOXACIN INJ 500 MG in PREMIX 1 EACH IV SCH (09:13)
[2017-07-03] MEDS: POLYETHYLENE GLYCOL POWDER 17 GM PACK PO SCH (09:13)
--- NOTE | 2017-07-03 10:16 | XRay Report ---
2 view chest July 03, 2017 0706 hours Indication: Shortness of breath Comparison: June 29, 2017 at 1334 hours Findings: Cardiomediastinal contours are stable. Chronic coarsening of the interstitium with persistent stranding bibasilar densities, unchanged in the interim. No acute osseous abnormalities. Visualized upper abdomen demonstrates no acute pathology. Impression: Chronic interstitial changes bilaterally. Residual stranding and volume loss within lung bases, likely atelectasis. Infectious process not excluded. PROCEDURE INTERPRETED AT [facility] DEPARTMENT OF RADIOLOGY Final Report Signed by: Jose Eduardo Art
--- NOTE | 2017-07-03 11:22 | Pulmonology Progress Note ---
Pulmonary - PN: Subj Interval history: Mr. Gonzalez is an 81-year-old white male who was [facility]. At the time of admission, our impressions were: 1. Acute bronchitis with bronchospasm, refractory to outpatient treatment. 2. Severe shortness of breath, productive cough, and wheezing secondary to #1. 3. Bronchospastic airway disease. 4. Possible left lower lung pneumonia, CXR, sputums, and blood cultures are pending. 5. History of COPD/Asthma. 6. Hypertension 7. GERD with suspected microaspiration. 8. Non-insulin dependent type II diabetes mellitus. 9. assisted use of methotrexate. 10. See past history. 06/30/2017. The patient was seen today along with a male family member and Sirena Sims RN. Patient states that his respiratory status has already improved in less than 24 hours while being inpatient. Chest x-ray today shows hyperinflation and an acute lingular infiltrate that is more prominent on today' s x-ray done was done yesterday at [facility]. He is on Fortaz and Levaquin. Sputum Gram stain showed few gram-positive cocci in clusters and pairs and rare gram negative rods. Sputum cultures pending. Blood cultures are negative thus far. He has remained afebrile. Cold agglutinins are negative and Legionella is pending. He is anemic, but iron studies did not reveal iron deficiency anemia. B12 and folate levels are normal. Medications have been reviewed. We made no changes today. Labs been reviewed. White count is 7900 with 75.4% segs; H&H 9.6/28.5; platelet count 178,000; creatinine has improved to 1.10, BUN 30, electrolytes are normal; magnesium was low at 1.7 yesterday and his magnesium dose was increased; urinalysis showed no evidence of infection 07/01/2017. Patient's quite a bit better today he is been able to get up and walk in the [place]. He still short of breath and has dyspnea on exertion. He is begun to mobilize some sputum. On chest exam he has less wheezing than he had before. There are no positive cultures. Creatinine is 1.202 BUN of 33 electrolytes are normal. CBC is stable. Thyroid function tests are normal range. Vitamin B12 and folic acid are also normal. His iron is low and is being replaced. 07/02/2017. This man continues to improve on a daily basis. He is been able to get up and walk around some. He continues to localize copious amounts of discolored sputum. His fever is resolving. He could be ready for discharge another day or 2. White blood cell count is 12,000 with 86.5 segs. H&H is 9.5/ 30.0. Electrolytes are normal. Creatinine is 1.2 with a BUN of 34. He has some Tashia albicans in his sputum. No bacteria have grown. He is due for follow-up chest x-ray soon and he could be ready for discharge by 07/04/2017 07/03/2017. This patient continues to clinically improve on a daily basis. He is up and moving around his chest secondary clear. He has a very prominent hilum with scarring. Interstitial like scarring extends inferiorly several centimeters below the hilum there benign calcifications associated with this. He has a faint residual right lower lung infiltrate. These changes have been present for more than a year and are benign. Glucose is under fair control he should drop with decreasing his steroid dose. I have told the patient that he will probably be discharged tomorrow. Patient says this is the best his breathing has been in quite some time Exam (Progress Note) - Constitutional Vitals: Period Temp Pulse Resp BP Sys/Malone Pulse Ox Last 24 Hr 97.4 F-98.0 F 60-86 16-20 142-162/73-94 90-99 Exam: Face. Symmetrical. No edema. Neck. Symmetrical. No meningismus. Lymphatics. No submandibular cervical supraclavicular or epitrochlear adenopathy. Chest is hyperinflated with moderate prolongation of expiration. I hear absolutely no wheeze today. Heart no gallop Abdomen is nontender and nondistended; bowel sounds are positive 4 Extremities with nothing to suggest acute deep venous thrombophlebitis Psychiatric oriented 3 Neurologic long-term motor function is intact Plan: 06/30/2017. 1. Continue present treatment. 2. Repeat labs in the morning. 3. Repeat chest x-ray on Monday. 4. Follow-up sputum culture when available. 6. See orders. 07/01/2017. 1. See my note above. 2. Improved exercise tolerance. 07/02/2017. 1. See today's note above 2. Anticipate 07/03/2017 discharge. 3. Need follow-up chest 07/03/2017. 1. See today's note above 2. Possible discharge tomorrow 3. We will reduce steroids prior to discharge Exam (Progress Note) - Constitutional Vitals: Period Temp Pulse Resp BP Sys/Malone Pulse Ox Last 24 Hr 96.8 F-97.9 F 71-90 16-25 111-142/62-99 90-99 Results - Labs CBC & BMP: 07/02/17 06:26 07/02/17 06:26
[2017-07-03] MEDS: CHOLECALCIFEROL 1,000 UNIT TABLET PO SCH (21:51)
[2017-07-03] MEDS: MULTIVITAMIN (CENTRUM) TABLET PO SCH (21:51)
[2017-07-03] MEDS: MULTIVITAMIN (BEROCCA) TABLET PO SCH (21:52)
[2017-07-03] MEDS: DOCUSATE SODIUM 100 MG CAPSULE PO SCH (21:52)
[2017-07-03] MEDS: OMEGA 3 ACID ETHYL ESTERS 1 GM CAPSULE PO SCH (21:52)
[2017-07-04] MEDS: methylPREDNISolone SOD SUC 125 MG/2 ML VIAL IV SCH ×2 (00:30→09:39)
[2017-07-04] MEDS: ALBUTEROL/IPRATROPIUM 3 ML NEB RESP TX SCH ×2 (07:33→11:02)
[2017-07-04] MEDS: LEVOFLOXACIN INJ 500 MG in PREMIX 1 EACH IV SCH (09:37)
[2017-07-04] MEDS: metFORMIN 500 MG TABLET PO SCH (09:39)
[2017-07-04] MEDS: miSOPROStol 200 MCG TABLET PO SCH (09:39)
[2017-07-04] MEDS: POTASSIUM CHLORIDE 20 MEQ TABLET PO SCH (09:40)
[2017-07-04] MEDS: GABAPENTIN 600 MG TABLET PO SCH (09:40)
[2017-07-04] MEDS: FUROSEMIDE 80 MG TABLET PO SCH (09:40)
[2017-07-04] MEDS: MAGNESIUM CHLORIDE 64 MG TABLET PO SCH (09:40)
[2017-07-04] MEDS: ASPIRIN EC 81 MG TABLET PO SCH (09:40)
[2017-07-04] MEDS: MONTELUKAST 10 MG TABLET PO SCH (09:40)
[2017-07-04] MEDS: PANTOPRAZOLE 40 MG TABLET PO SCH (09:40)
[2017-07-04] MEDS: FOLIC ACID 1 MG TABLET PO SCH (09:40)
[2017-07-04] MEDS: INSULIN LISPRO 100 UNIT/ML SUBCUT SCH ×2 (09:41→11:51)
[2017-07-04] MEDS: CARVEDILOL 6.25 MG TABLET PO SCH (09:41)
[2017-07-04] MEDS: GLIMEPIRIDE 4 MG TABLET PO SCH (09:41)
[2017-07-04] MEDS: LEVOTHYROXINE 175 MCG TABLET PO SCH (09:41)
[2017-07-04] MEDS: POLYETHYLENE GLYCOL POWDER 17 GM PACK PO SCH (09:42)
[2017-07-04 12:26] VITALS: BP 152/74
--- NOTE | 2017-07-04 12:39 | Pulmonology Progress Note ---
Pulmonary - PN: Subj Interval history: Aram Johns, [facility]-, acting as scribe for Dr. Zacarias Palomino Mr. Gonzalez is an 81-year-old white male who was admitted 06/29/2017 from [facility]. At the time of admission, our impressions were: 1. Acute bronchitis with bronchospasm, refractory to outpatient treatment. 2. Severe shortness of breath, productive cough, and wheezing secondary to #1. 3. Bronchospastic airway disease. 4. Possible left lower lung pneumonia, CXR, sputums, and blood cultures are pending. 5. History of COPD/Asthma. 6. Hypertension 7. GERD with suspected microaspiration. 8. Non-insulin dependent type II diabetes mellitus. 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 10. See past history. 06/30/2017. The patient was seen today along with a male family member and Sirena Sims RN. Patient states that his respiratory status has already improved in less than 24 hours while being inpatient. Chest x-ray today shows hyperinflation and an acute lingular infiltrate that is more prominent on today' s x-ray done was done yesterday at [facility]. He is on Fortaz and Levaquin. Sputum Gram stain showed few gram-positive cocci in clusters and pairs and rare gram negative rods. Sputum cultures pending. Blood cultures are negative thus far. He has remained afebrile. Cold agglutinins are negative and Legionella is pending. He is anemic, but iron studies did not reveal iron deficiency anemia. B12 and folate levels are normal. Medications have been reviewed. We made no changes today. Labs been reviewed. White count is 7900 with 75.4% segs; H&H 9.6/28.5; platelet count 178,000; creatinine has improved to 1.10, BUN 30, electrolytes are normal; magnesium was low at 1.7 yesterday and his magnesium dose was increased; urinalysis showed no evidence of infection 07/01/2017. Patient's quite a bit better today he is been able to get up and walk in the [place]. He still short of breath and has dyspnea on exertion. He is begun to mobilize some sputum. On chest exam he has less wheezing than he had before. There are no positive cultures. Creatinine is 1.202 BUN of 33 electrolytes are normal. CBC is stable. Thyroid function tests are normal range. Vitamin B12 and folic acid are also normal. His iron is low and is being replaced. 07/02/2017. This man continues to improve on a daily basis. He is been able to get up and walk around some. He continues to localize copious amounts of discolored sputum. His fever is resolving. He could be ready for discharge another day or 2. White blood cell count is 12,000 with 86.5 segs. H&H is 9.5/ 30.0. Electrolytes are normal. Creatinine is 1.2 with a BUN of 34. He has some Tashia albicans in his sputum. No bacteria have grown. He is due for follow-up chest x-ray soon and he could be ready for discharge by 07/04/2017 07/03/2017. This patient continues to clinically improve on a daily basis. He is up and moving around his chest secondary clear. He has a very prominent hilum with scarring. Interstitial like scarring extends inferiorly several centimeters below the hilum there benign calcifications associated with this. He has a faint residual right lower lung infiltrate. These changes have been present for more than a year and are benign. Glucose is under fair control he should drop with decreasing his steroid dose. I have told the patient that he will probably be discharged tomorrow. Patient says this is the best his breathing has been in quite some time. 07/04/2017. The patient was seen today along with his and Erika Jimenez RN. The patient continues to do well from a pulmonary standpoint. He again stated that this is the best his breathing has been in quite some time. Chest x-ray continues to show big hilum and scarring in the right lower lobe but this has been present for many years on review of previous x-rays and has been stable. Sputum has only grown Tashia albicans, but this was not a Tashia pneumonia. He will be treated with Diflucan for 7 days upon discharge. We discussed discharge medications with patient and his . As an outpatient, he is on methotrexate as per his child development professor for psoriasis. We have instructed him to stay off the methotrexate while on prednisone. He can restart methotrexate once his prednisone taper has been completed. He verbalized understanding. He will follow-up with Monisha Palumbo, nurse practitioner, in approximately 2 weeks , but could be seen sooner if needed. Medications have been reviewed. Labs been reviewed. Exam (Progress Note) - Constitutional Vitals: Period Temp Pulse Resp BP Sys/Malone Pulse Ox Last 24 Hr 96.7 F-97.8 F 61-81 16-20 127-152/62-85 92-100 Exam: Chest is hyperinflated with prolonged expiration, but wheeze free Heart no gallop Abdomen is nontender and nondistended; bowel sounds are positive 4 Extremities with nothing to suggest acute deep venous thrombophlebitis Psychiatric oriented 3 Neurologic long-term motor function is intact Plan: The patient has now met maximum hospital benefit and can be discharged home. Please see the discharge summary for more information. Results - Labs CBC & BMP: 07/02/17 06:26 07/02/17 06:26
--- NOTE | 2017-07-04 12:50 | Discharge Summary ---
Hospital Course - Hospital Course Hospital Course: Aram Johns, [facility], acting as scribe for Dr. Zacarias Palomino Mr. Gonzalez is an 81-year-old white male from [place], [place], who is admitted 06/29/2017 from [facility]. He was initially seen 2016 by Monisha Palumbo, nurse practitioner, at [facility] with complaints of increased shortness of breath, cough with white sputum, and a near syncopal episode. The patient was febrile with temperature of 99.2 and his white count was elevated at 12,000. He has completed a two-week course of Augmentin and had recently started amoxicillin per Dr. Donovan Reich. It was felt that much of his symptoms at that time were secondary to gastroesophageal reflux with microaspiration and he was instructed to continue his antibiotics and increased his prednisone. He presented back to casey sadler, nurse practitioner, the day of admission with complaints of worsening symptoms. He admitted continued increased shortness of breath, worsening cough with discolored sputum, weakness, and dyspnea. Because of the worsening of his symptoms, outpatient treatment failure status, chronic illnesses, and advanced age, it was felt in his best interest to hospitalize him for further evaluation and care. The patient was admitted and started on IV antibiotics of Fortaz and Levaquin. The day after admission, with rehydration, chest x-ray showed an acute lingular infiltrate in the faint right lower lung infiltrate. Sputum Gram stain showed few gram-positive cocci in clusters and pairs as well as gram-negative rods. Sputum culture, however, only grew Tashia albicans, but this was not a Tashia pneumonia. Nonetheless, with these antibiotics the patient's symptoms markedly improved. At discharge, his chest x-ray continues to show an enlarged hilum and scarring in the right lower lobe, however, this is been present for many years on review of old x-rays and has been stable. The infiltrates have resolved. He has remained afebrile and his cough is no longer productive of discolored sputum. He is now wheeze free and he no longer has dyspnea on exertion. Cold agglutinins were negative and Legionella is pending at the time of discharge. This patient has known psoriasis and is followed from dermatology standpoint by Dr. Argenis Her. She has had the patient on methotrexate. We have instructed him that while he is on prednisone he should not take the methotrexate. However, once his tapering dose of prednisone has been completed he can restart the methotrexate. He verbalized understanding. At discharge, white count is 12,000 with 86.5% segs, 4.4% lymphs, and 7.2% monos ; H&H 9.5/29.0 with normal indices and increased red blood cell distribution with; platelet count 188,000; creatinine 1.20, BUN 34, sodium 140, potassium 4.1 , magnesium 2.3; vitamin B12 level 959, folate greater than 24.0; iron 58, iron sat 19.4%, total iron-binding capacity 299; calcium 8.7, albumin 3.6, total protein 6.5; liver function tests within normal limits; TSH is low at 0.284, but free T4 is normal at 1.30; urinalysis showed no evidence of infection. For more information regarding Mr. Gonzalez's past medical history, family history, social history, admit labs, admit x-ray and admit exam, please see the admission note dated 06/29/2017. Impression: 1. Acute bronchitis with bronchospasm, refractory to outpatient treatment. 2. Severe shortness of breath, productive cough, and wheezing secondary to #1. 3. Bronchospastic airway disease. 4. Acute lingular and right lower lung infiltrates--- resolved 5. History of COPD/Asthma. 6. Hypertension 7. GERD with suspected microaspiration. 8. Non-insulin dependent type II diabetes mellitus. 9. residential use of methotrexate secondary to psoriasis 10. See past history. Plan: Prednisone 10 mg daily for 10 days then 10 mg every other day for 10 doses , Diflucan 100 mg daily for 7 days, Levaquin 500 mg daily for 7 days, Ceftin 500 mg twice daily for 7 days, aspirin 81 mg daily, Tessalon 200 mg 3 times daily as needed cough, Coreg 6.25 mg twice daily, vitamin D3 2000 units at bedtime, folic acid 1 mg daily, Lasix 80 mg twice daily, Neurontin 600 mg 3 times daily, Amaryl 4 mg twice daily, Mucinex 600 mg twice daily, multivitamin bedtime, Synthroid 175 mg before breakfast, Slow-Mag 64 mg twice daily, Glucophage 500 mg twice daily, Robaxin 500 mg daily as needed, Cytotec 200 mcg daily, Singulair 10 mg twice daily, Protonix 40 mg twice daily, Chronulac 15 mg daily as needed, K-Dur 20 milliequivalents daily, trazodone 150 mg at bedtime, vitamin C 1000 mg daily, MiraLAX 17 g daily, Fish oil 1000 mg at bedtime, B complex with vitamin C 1 tablet at bedtime, and Colace 100 mg at bedtime. He will be scheduled to follow-up with Monisha Palumbo, nurse practitioner, in approximately 2 weeks. He can be seen sooner if needed. Specialty Discharge - Follow Up or Referrals Follow up with: Monisha Palumbo, [employer] MA[employer] [Advanced Practice Nurse] - 2 Weeks () Discharge Plan - Discharge Data Disposition: Disch To Home/Self Care Condition at Discharge: Stable - Discharge Medications New Fluconazole Tab [Diflucan Tab] 100 mg PO DAILY #7 tablet Levofloxacin Tab [Levaquin Tab] 500 mg PO DAILY #7 tablet Montelukast Tab [Singulair Tab] 10 mg PO BID #60 tablet Pantoprazole Tab [Protonix Tab] 40 mg PO BID #60 tablet cefUROXime axetil [Cefuroxime] 500 mg PO BID #14 tablet miSOPROStol [Cytotec] 200 mcg PO DAILY #30 tablet predniSONE TAB [PredniSONE] 10 mg PO DIRECTED #20 tablet Benzonatate [Tessalon] 200 mg PO TID PRN #60 capsule PRN Reason: Cough Magnesium Chloride [Slow Mag] 64 mg PO BID #60 tablet guaiFENesin ER TAB [Mucinex] 600 mg PO BID #60 tablet Continue Carvedilol [Coreg] 6.25 mg PO BID Levothyroxine Tab [Synthroid Tab] 175 mcg PO DAILY Furosemide Tab [Lasix Tab] 80 mg PO BID DIURETIC [place]-3 Fatty Acids [Fish Oil Concentrate] 1,000 mg PO BEDTIME Gabapentin 600 mg PO TID Multivitamin (Centrum) [Centrum Tab] 1 tablet PO BEDTIME B-Complex with Vitamin C [Vitamin B-Complex with Vit C] 1 each PO BEDTIME Aspirin [Ecotrin] 81 mg PO DAILY Docusate Sodium Cap [Colace Cap] 100 mg PO BEDTIME Cholecalciferol (Vitamin D3) [Vitamin D3] 2,000 unit PO BEDTIME Ascorbic Acid Tab [Vitamin C Tab] 1,000 mg PO DAILY Potassium Chloride [Klor-Con M10] 20 meq PO DAILY Glimepiride 4 mg PO BID Lactulose Liquid [Chronulac] 15 mg PO DAILY PRN PRN Reason: Constipation metFORMIN [Glucophage] 500 mg PO BID Methocarbamol Tab [Robaxin Tab] 500 mg PO DAILY PRN PRN Reason: Pain Polyethylene Glycol 3350 17 gm PO DAILY Folic Acid 1 mg PO DAILY traZODone [Desyrel] 150 mg PO BEDTIME Discontinued Pantoprazole Sodium 40 mg PO DAILY Magnesium Chloride [Slow Mag] 64 mg PO BEDTIME predniSONE TAB [PredniSONE] 10 mg PO DAILY #21 tablet - Follow Up or Referral - Forms/Instructions Exam - Constitutional Vitals: Period Temp Pulse Resp BP Sys/Malone Pulse Ox Last 24 Hr 96.7 F-97.8 F 61-81 16-20 127-152/62-85 92-100 Discharge Results Procedures and tests throughout hospitalization: Pending Orders 06/29/17 09:51 Legionella Pneumophilia Ab Routine 07/02/17 08:19 Sputum Culture and Gram Stain Routine Labs on day of discharge: Labs from last 24 hours 07/04/17 07/04/17 07/03/17 11:47 07:18 20:22 POC Glucose 236 H 349 H 305 H 07/03/17 15:59 POC Glucose 278 H Preliminary micro results at discharge 07/02/17 08:19 Sputum Culture - Preliminary Sputum Yeast DS: Provider Date of admission: 06/29/17 09:20 Primary care physician: Konstantin Smith DO Attending physician on admission: Zacarias Palomino MD Consults: 06/29/17 09:55 Consult to Dietitian [CONS] Routine Reason for Dietitian: Other Consult Comment: Weight loss Discharging clinician: GENO Moncada
== END 2017-07-04 14:28 | disposition home or self-care (01) | DRG 192 ==
LOC: N.5E 09:20
PROVIDERS: ADMIT Internal Medicine Pulmonary Disease; ATTEND Internal Medicine Pulmonary Disease

== ENCOUNTER 2018-08-26 13:16 | Inpatient (IN) ==
[2018-08-26] MEDS ORDERED: ONDANSETRON 4 MG/2 ML VIAL IV STA (13:39)
[2018-08-26] MEDS ORDERED: MORPHINE 4 MG/1 ML VIAL IV STA (13:39)
[2018-08-26 14:20] LABS: Basophils # 0.1 10*3/uL (0.0-0.2); Basophils % 0.5 % (0.0-0.8); Eosinophils # 0.3 10*3/uL (0.0-0.87); Eosinophils % 1.8 % (0.00-10.9); Hematocrit 37.3 VOL% (42.0-52.0); Immature Granulocytes % 0.9 %; Immature Granulocytes Absolute 0.13 #; Lymphocytes # 1.1 10*3/uL (1.4-4.0); Lymphocytes % 7.6 % (21.2-54.2); Mean Corpuscular HGB Conc 32.2 GM/DL (32-36); Mean Corpuscular Hemoglobin 33 PG (27-34); Mean Corpuscular Volume 101.4 FL (87-102); Monocytes # 2.5 10*3/uL (0.11-0.8); Monocytes % 16.7 % (1.7-12.7); NRBC # 0.02 10*3/uL; Neutrophils # 10.8 10*3/uL (1.4-7.4); Neutrophils % 72.5 % (38.7-73.9); Platelet Count 164 T/CUMM (130-400); Red Blood Count 3.68 MC/CUMM (3.8-5.5); White Blood Count 14.8 T/CUMM (4-12)
[2018-08-26 14:31] LABS: INR 1.1; PT Patient Result 11.6 SECS; Partial Thromboplastin Time 24.2 SECS (0-40)
[2018-08-26 14:48] LABS: Albumin 4.1 G/DL (3.4-5.0); Bilirubin,Total 0.9 MG/DL (0.2-1.0); Calcium 9.5 MG/DL (8.5-10.1); Total Protein 7.3 G/DL (6.4-8.3)
[2018-08-26 14:56] LABS: Potassium 2.5 MMOL/L (3.5-5.1)
[2018-08-26] MEDS ORDERED: FUROSEMIDE 40 MG/4 ML VIAL IV STA (14:56)
[2018-08-26] MEDS ORDERED: POTASSIUM CHLORIDE 20 MEQ TABLET PO STA (14:57)
[2018-08-26 16:02] LABS: Apearance,Urine Slightly Hazy (Clear); Bacteria,Urine Occasional /HPF (Few); Bilirubin,Urine Negative (Negative); Blood, Urine Negative (Negative); Glucose,Urine (UA) Negative (Negative); Hyaline Casts,Urine 1 /LPF (0-3); Ketones,Urine Negative (Negative); Nitrite,Urine Negative (Negative); Protein,Urine Negative; RBC,Urine <1 /HPF (0-4); Urine Color Yellow (Yellow); Urine Specific Gravity 1.008 (1.001-1.035); Urine Urobilinogen < 2.0 EU/DL (0.2-1.0); WBC,Urine 1 /HPF (0-6)
[2018-08-26] MEDS ORDERED: ONDANSETRON 4 MG/2 ML VIAL IV PRN (16:35)
[2018-08-26] MEDS ORDERED: DEXTROSE 50% 25 GM/50 ML VIAL IV PRN (16:35)
[2018-08-26] MEDS ORDERED: GLUCAGON 1 MG VIAL IM PRN (16:35)
[2018-08-26] MEDS ORDERED: metOLazone 5 MG TABLET PO PRN (16:37)
[2018-08-26] MEDS ORDERED: LACTULOSE 20 GM/30 ML UDCUP PO PRN (16:37)
[2018-08-26] MEDS ORDERED: MAGNESIUM SULF RIDER 2 GM in PREMIX 1 EACH IV PRN (16:40)
[2018-08-26] MEDS ORDERED: MAGNESIUM SULF RIDER 4 GM in PREMIX 1 EACH IV PRN (16:40)
[2018-08-26 17:48] LABS: Risk Ratio 3.91; Thyroid Stimulating Hormone 0.417 uIU/ml (0.358-3.74); VLDL CHOLESTEROL 21.6 MG/DL
[2018-08-26 18:29] LABS: Band Neutrophils 1 % (0-10); Lymphocytes 7 % (20-55); Platelet Estimate Normal; Segmented Neutrophils 78 % (50-85); Total Cells Counted 100
[2018-08-26] MEDS: ALBUTEROL/IPRATROPIUM 3 ML NEB RESP TX SCH (20:10)
[2018-08-26] MEDS ORDERED: HEPARIN 5,000 UNIT/1 ML VIAL SUBCUT SCH (21:00)
[2018-08-26] MEDS: OMEGA 3 ACID ETHYL ESTERS 1 GM CAPSULE PO SCH (21:13)
[2018-08-26] MEDS: CHOLECALCIFEROL 1,000 UNIT TABLET PO SCH (21:13)
[2018-08-26] MEDS: GLIMEPIRIDE 4 MG TABLET PO SCH (21:14)
[2018-08-26] MEDS: MAGNESIUM CHLORIDE 64 MG TABLET PO SCH (21:14)
[2018-08-26] MEDS: metFORMIN 500 MG TABLET PO SCH (21:14)
[2018-08-26] MEDS: MONTELUKAST 10 MG TABLET PO SCH (21:15)
[2018-08-26] MEDS: GABAPENTIN 600 MG TABLET PO SCH (21:15)
[2018-08-26] MEDS: DOCUSATE SODIUM 100 MG CAPSULE PO SCH (21:15)
[2018-08-26] MEDS: MULTIVITAMIN (BEROCCA) TABLET PO SCH (21:15)
[2018-08-26] MEDS: CARVEDILOL 6.25 MG TABLET PO SCH (21:15)
[2018-08-26] MEDS: PANTOPRAZOLE 40 MG TABLET PO SCH (21:16)
[2018-08-26] MEDS: ALLOPURINOL 100 MG TABLET PO SCH (21:16)
[2018-08-26] MEDS: POTASSIUM CHLORIDE 20 MEQ TABLET PO SCH (21:17)
[2018-08-26] MEDS: ENOXAPARIN 40 MG/0.4 ML SYRINGE SUBCUT SCH (21:18)
[2018-08-26] MEDS: INSULIN REGULAR 100 UNIT/ML SUBCUT SCH (23:03)
[2018-08-27] MEDS: ALBUTEROL/IPRATROPIUM 3 ML NEB RESP TX SCH ×2 (00:19→07:16)
[2018-08-27] MEDS: MORPHINE 4 MG/1 ML VIAL IV PRN ×2 (01:52→06:06)
[2018-08-27] MEDS ORDERED: METOPROLOL TARTRATE 50 MG TABLET PO ONE (02:00)
[2018-08-27 04:20] LABS: Allen Test Positive; Pt O2 Delivery Device Other
[2018-08-27 04:21] LABS: ABG Base Excess 10.9 MMOL/L (-2.5-2.5); ABG HCO3 36.6 MMOL/L (20-26); ABG Oxygen Saturation 84.9 % (95-100); ABG PCO2 52.9 MM HG (35-48); ABG PH 7.458 (7.35-7.45); ABG PO2 53.7 MM HG (80-95); ABG TCO2 38.2 MMOL/L (23-27)
[2018-08-27 05:27] LABS: Basophils # 0.1 10*3/uL (0.0-0.2); Basophils % 0.2 % (0.0-0.8); Eosinophils # 0.1 10*3/uL (0.0-0.87); Eosinophils % 0.2 % (0.00-10.9); Hematocrit 38.6 VOL% (42.0-52.0); Hemoglobin 12.1 GM/DL (14.0-18.0); Immature Granulocytes Absolute 0.21 #; Lymphocytes # 1.1 10*3/uL (1.4-4.0); Lymphocytes % 5.1 % (21.2-54.2); Mean Corpuscular HGB Conc 31.3 GM/DL (32-36); Mean Corpuscular Hemoglobin 32 PG (27-34); Mean Corpuscular Volume 101.8 FL (87-102); Monocytes # 2.2 10*3/uL (0.11-0.8); Monocytes % 10.2 % (1.7-12.7); NRBC # 0.05 10*3/uL; Neutrophils % 83.3 % (38.7-73.9); Platelet Count 152 T/CUMM (130-400); Red Blood Count 3.79 MC/CUMM (3.8-5.5); Red Cell Distribution Width 18.6 % (9.3-17.3); White Blood Count 21.7 T/CUMM (4-12)
[2018-08-27 05:51] LABS: Band Neutrophils 3 % (0-10); Lymphocytes 5 % (20-55); Platelet Estimate Adequate; Segmented Neutrophils 85 % (50-85); Total Cells Counted 100
[2018-08-27 05:52] LABS: Hypochromasia 1+
[2018-08-27] MEDS: LEVOTHYROXINE 175 MCG TABLET PO SCH (06:00)
[2018-08-27 06:03] LABS: Albumin 3.7 G/DL (3.4-5.0); Bilirubin,Total 1.3 MG/DL (0.2-1.0); Calcium 8.6 MG/DL (8.5-10.1); Osmolality,Calculated 297.8 MOS/KG (273-304); Potassium 3.3 MMOL/L (3.5-5.1); Total Protein 7.1 G/DL (6.4-8.3)
[2018-08-27] MEDS ORDERED: LINACLOTIDE 145 MCG CAPSULE PO SCH (07:30)
[2018-08-27] MEDS ORDERED: FLUTICASONE 50 MCG NASAL SPRAY 16 GM BOTTLE BOTH NARES SCH (09:00)
[2018-08-27] MEDS: POLYETHYLENE GLYCOL POWDER 17 GM PACK PO SCH (09:13)
[2018-08-27] MEDS: INSULIN REGULAR 100 UNIT/ML SUBCUT SCH ×4 (09:15→22:05)
[2018-08-27] MEDS: FUROSEMIDE 80 MG TABLET PO SCH ×2 (09:17→20:29)
[2018-08-27] MEDS: metFORMIN 500 MG TABLET PO SCH (09:17)
[2018-08-27] MEDS: CARVEDILOL 6.25 MG TABLET PO SCH ×2 (09:17→18:00)
[2018-08-27] MEDS: GLIMEPIRIDE 4 MG TABLET PO SCH (09:17)
[2018-08-27] MEDS: ASPIRIN EC 81 MG TABLET PO SCH (09:18)
[2018-08-27] MEDS: FOLIC ACID 1 MG TABLET PO SCH (09:18)
[2018-08-27] MEDS: BISACODYL 5 MG TABLET PO SCH (09:18)
[2018-08-27] MEDS: predniSONE 10 MG TABLET PO SCH (09:19)
[2018-08-27] MEDS: POTASSIUM CHLORIDE 20 MEQ TABLET PO SCH ×2 (09:19→21:35)
[2018-08-27] MEDS: GABAPENTIN 600 MG TABLET PO SCH ×3 (09:19→21:35)
[2018-08-27] MEDS: ALLOPURINOL 100 MG TABLET PO SCH (09:20)
[2018-08-27] MEDS: MONTELUKAST 10 MG TABLET PO SCH ×2 (09:20→21:35)
[2018-08-27] MEDS: MAGNESIUM CHLORIDE 64 MG TABLET PO SCH ×2 (09:20→21:35)
[2018-08-27] MEDS: ASCORBIC ACID 500 MG TABLET PO SCH (09:20)
[2018-08-27] MEDS: PANTOPRAZOLE 40 MG TABLET PO SCH ×2 (09:20→21:35)
[2018-08-27] MEDS: METOPROLOL SUCCINATE XL 50 MG TABLET PO SCH (09:20)
[2018-08-27] MEDS ORDERED: FUROSEMIDE 40 MG/4 ML VIAL ONE (09:50)
[2018-08-27] MEDS ORDERED: methylPREDNISolone SOD SUC 125 MG/2 ML VIAL ONE (09:52)
[2018-08-27] MEDS ORDERED: FUROSEMIDE 40 MG/4 ML VIAL IV ONE (09:57)
[2018-08-27] MEDS ORDERED: methylPREDNISolone SOD SUC 125 MG/2 ML VIAL IV ONE (09:57)
[2018-08-27 10:05] LABS: ABG Base Excess 10.1 MMOL/L (-2.5-2.5); ABG HCO3 33.6 MMOL/L (20-26); ABG Oxygen Saturation 88.6 % (95-100); ABG PCO2 55.8 MM HG (35-48); ABG PH 7.426 (7.35-7.45); ABG PO2 56.8 MM HG (80-95); ABG TCO2 32.2 MMOL/L (23-27)
[2018-08-27] MEDS ORDERED: PROPOFOL 200 MG/20 ML VIAL IV ONE (10:38)
[2018-08-27] MEDS ORDERED: ETOMIDATE 40 MG/20 ML VIAL IV ONE (10:39)
[2018-08-27] MEDS ORDERED: SUCCINYLCHOLINE 200 MG/10 ML VIAL ONE (10:39)
[2018-08-27 11:08] LABS: ABG Base Excess 9.5 MMOL/L (-2.5-2.5); ABG HCO3 33.3 MMOL/L (20-26); ABG Oxygen Saturation 99.4 % (95-100); ABG PCO2 40.4 MM HG (35-48); ABG PH 7.523 (7.35-7.45); Allen Test Positive; Pt O2 Delivery Device Ventilator
[2018-08-27] MEDS: MEROPENEM 1,000 MG in SODIUM CHLORIDE 0.9% 100 ML IV SCH ×2 (11:11→18:00)
[2018-08-27] MEDS: PIPERACILLIN/TAZOBACTAM 3,375 MG in SODIUM CHLORIDE 0.9% 100 ML IV SCH ×2 (11:14→20:14)
[2018-08-27] MEDS: LEVALBUTEROL 0.63 MG/3 ML NEB RESP TX SCH ×3 (11:21→18:59)
[2018-08-27] MEDS: SKIN HEALING OINT (AQUAPHOR) 50 GM TUBE TOP SCH (17:38)
[2018-08-27] MEDS: FUROSEMIDE 40 MG/4 ML VIAL IV SCH (17:43)
[2018-08-27] MEDS: POTASSIUM CHLORIDE RIDER 10 MEQ in PREMIX 1 EACH IV PRN ×3 (20:21→21:30)
[2018-08-27] MEDS: PROPOFOL 1,000 MG/100 ML BOTTLE IV SCH (21:29)
[2018-08-27] MEDS: DOCUSATE SODIUM 100 MG CAPSULE PO SCH (21:35)
[2018-08-27] MEDS: MULTIVITAMIN (BEROCCA) TABLET PO SCH (21:35)
[2018-08-27] MEDS: CHOLECALCIFEROL 1,000 UNIT TABLET PO SCH (21:36)
[2018-08-27] MEDS: OMEGA 3 ACID ETHYL ESTERS 1 GM CAPSULE PO SCH (21:36)
[2018-08-27] MEDS: ENOXAPARIN 40 MG/0.4 ML SYRINGE SUBCUT SCH (21:36)
[2018-08-28] MEDS: LEVALBUTEROL 0.63 MG/3 ML NEB RESP TX SCH ×4 (00:58→19:20)
[2018-08-28] MEDS: MEROPENEM 1,000 MG in SODIUM CHLORIDE 0.9% 100 ML IV SCH ×2 (01:58→14:44)
[2018-08-28 03:58] LABS: ABG Base Excess 10.4 MMOL/L (-2.5-2.5); ABG HCO3 34.1 MMOL/L (20-26); ABG Oxygen Saturation 95.9 % (95-100); ABG PCO2 39.2 MM HG (35-48); ABG PH 7.544 (7.35-7.45); ABG PO2 75.3 MM HG (80-95); ABG TCO2 29.7 MMOL/L (23-27)
[2018-08-28] MEDS: PIPERACILLIN/TAZOBACTAM 3,375 MG in SODIUM CHLORIDE 0.9% 100 ML IV SCH (04:15)
[2018-08-28 04:21] LABS: Basophils % 0.1 % (0.0-0.8); Hematocrit 33.7 VOL% (42.0-52.0); Immature Granulocytes % 0.7 %; Immature Granulocytes Absolute 0.17 #; Lymphocytes # 0.7 10*3/uL (1.4-4.0); Lymphocytes % 2.8 % (21.2-54.2); Mean Corpuscular HGB Conc 32.6 GM/DL (32-36); Mean Corpuscular Hemoglobin 33 PG (27-34); Mean Corpuscular Volume 100.6 FL (87-102); Monocytes % 4.3 % (1.7-12.7); NRBC # 0.02 10*3/uL; Neutrophils # 21.6 10*3/uL (1.4-7.4); Neutrophils % 92.1 % (38.7-73.9); Platelet Count 122 T/CUMM (130-400); Red Blood Count 3.35 MC/CUMM (3.8-5.5); Red Cell Distribution Width 18.3 % (9.3-17.3); White Blood Count 23.5 T/CUMM (4-12)
[2018-08-28 04:29] LABS: INR 1.3; PT Patient Result 13.9 SECS; Partial Thromboplastin Time 29.1 SECS (0-40)
[2018-08-28] MEDS: MORPHINE 4 MG/1 ML VIAL IV PRN ×4 (04:36→21:02)
[2018-08-28 04:46] LABS: Band Neutrophils 6 % (0-10); Hypochromasia 1+; Lymphocytes 4 % (20-55); Segmented Neutrophils 87 % (50-85); Target Cells Slight; Total Cells Counted 100
[2018-08-28 04:47] LABS: Calcium 8.5 MG/DL (8.5-10.1); Macrocytosis 1+; Osmolality,Calculated 312.4 MOS/KG (273-304); Ovalocytes Slight; Platelet Estimate Adequate; Potassium 3.3 MMOL/L (3.5-5.1)
[2018-08-28 04:49] LABS: Calcium 8.6 MG/DL (8.5-10.1); Osmolality,Calculated 306.7 MOS/KG (273-304); Potassium 3.2 MMOL/L (3.5-5.1)
[2018-08-28 04:51] LABS: Albumin 3.1 G/DL (3.4-5.0); Bilirubin,Total 1.7 MG/DL (0.2-1.0); Calcium 8.5 MG/DL (8.5-10.1); Osmolality,Calculated 309.7 MOS/KG (273-304); Potassium 3.2 MMOL/L (3.5-5.1); Total Protein 6.9 G/DL (6.4-8.3)
[2018-08-28] MEDS: LEVOTHYROXINE 175 MCG TABLET PO SCH (05:37)
[2018-08-28] MEDS: POTASSIUM CHLORIDE RIDER 10 MEQ in PREMIX 1 EACH IV PRN ×4 (05:43→09:36)
[2018-08-28] MEDS: FUROSEMIDE 40 MG/4 ML VIAL IV SCH ×2 (08:15→15:25)
[2018-08-28] MEDS: INSULIN REGULAR 100 UNIT/ML SUBCUT SCH ×3 (08:42→17:37)
[2018-08-28] MEDS ORDERED: FUROSEMIDE 40 MG/4 ML VIAL IV SCH (09:00)
[2018-08-28] MEDS ORDERED: ALLOPURINOL 100 MG TABLET PO SCH (09:00)
[2018-08-28] MEDS: CARVEDILOL 6.25 MG TABLET PO SCH (09:10)
[2018-08-28] MEDS: POLYETHYLENE GLYCOL POWDER 17 GM PACK PO SCH (09:11)
[2018-08-28] MEDS: FOLIC ACID 1 MG TABLET PO SCH (09:11)
[2018-08-28] MEDS: ASPIRIN EC 81 MG TABLET PO SCH (09:11)
[2018-08-28] MEDS: GABAPENTIN 600 MG TABLET PO SCH ×2 (09:12→21:08)
[2018-08-28] MEDS: predniSONE 10 MG TABLET PO SCH (09:12)
[2018-08-28] MEDS: MONTELUKAST 10 MG TABLET PO SCH ×2 (09:13→21:08)
[2018-08-28] MEDS: LANSOPRAZOLE ODT 30 MG TABLET PER TUBE SCH ×2 (09:13→21:09)
[2018-08-28] MEDS: ASCORBIC ACID 500 MG TABLET PO SCH (09:14)
[2018-08-28] MEDS: MAGNESIUM CHLORIDE 64 MG TABLET PO SCH ×2 (09:14→21:08)
[2018-08-28] MEDS: METOPROLOL SUCCINATE XL 50 MG TABLET PO SCH (09:14)
[2018-08-28] MEDS: SKIN HEALING OINT (AQUAPHOR) 50 GM TUBE TOP SCH (09:16)
[2018-08-28] MEDS: BISACODYL 5 MG TABLET PO SCH (10:58)
[2018-08-28] MEDS: methylPREDNISolone SOD SUC 40 MG/1 ML VIAL IV SCH ×2 (11:36→23:21)
[2018-08-28] MEDS: POTASSIUM CHLORIDE 20 MEQ/15 ML UDCUP PO SCH ×2 (11:40→21:08)
[2018-08-28] MEDS: OMEGA 3 ACID ETHYL ESTERS 1 GM CAPSULE PO SCH (21:09)
[2018-08-28] MEDS: DOCUSATE SODIUM 100 MG/10 ML UDCUP PEG SCH (21:09)
[2018-08-28] MEDS: ENOXAPARIN 40 MG/0.4 ML SYRINGE SUBCUT SCH (21:09)
[2018-08-28] MEDS: PROPOFOL 1,000 MG/100 ML BOTTLE IV SCH (21:41)
[2018-08-28] MEDS: MULTIVITAMIN LIQUID (CENTRUM) 60 ML BOTTLE NG SCH (23:22)
[2018-08-29] MEDS: INSULIN REGULAR 100 UNIT/ML SUBCUT SCH ×4 (00:24→17:42)
[2018-08-29] MEDS: LEVALBUTEROL 0.63 MG/3 ML NEB RESP TX SCH ×4 (01:02→19:02)
[2018-08-29] MEDS: MEROPENEM 1,000 MG in SODIUM CHLORIDE 0.9% 100 ML IV SCH ×2 (02:24→14:41)
[2018-08-29] MEDS: MORPHINE 4 MG/1 ML VIAL IV PRN ×5 (02:51→21:25)
[2018-08-29] MEDS: ACETAMINOPHEN 325 MG TABLET PO PRN ×2 (02:57→11:26)
[2018-08-29 03:18] LABS: ABG Base Excess 8.8 MMOL/L (-2.5-2.5); ABG HCO3 32.6 MMOL/L (20-26); ABG Oxygen Saturation 98.9 % (95-100); ABG PCO2 39.7 MM HG (35-48); ABG TCO2 28.7 MMOL/L (23-27); Allen Test Positive; Pt O2 Delivery Device Ventilator
[2018-08-29] MEDS: PROPOFOL 1,000 MG/100 ML BOTTLE IV SCH ×3 (04:43→15:04)
[2018-08-29 04:58] LABS: Basophils % 0.1 % (0.0-0.8); Hematocrit 33.6 VOL% (42.0-52.0); Immature Granulocytes % 0.7 %; Lymphocytes # 0.5 10*3/uL (1.4-4.0); Lymphocytes % 3.4 % (21.2-54.2); Mean Corpuscular HGB Conc 32.7 GM/DL (32-36); Mean Corpuscular Hemoglobin 33 PG (27-34); Mean Corpuscular Volume 100.6 FL (87-102); Monocytes # 0.8 10*3/uL (0.11-0.8); Monocytes % 5.5 % (1.7-12.7); Neutrophils # 12.9 10*3/uL (1.4-7.4); Neutrophils % 90.3 % (38.7-73.9); Platelet Count 136 T/CUMM (130-400); Red Blood Count 3.34 MC/CUMM (3.8-5.5); Red Cell Distribution Width 18.6 % (9.3-17.3); White Blood Count 14.3 T/CUMM (4-12)
[2018-08-29 05:30] LABS: Band Neutrophils 1 % (0-10); Hypochromasia 1+; Lymphocytes 5 % (20-55); Ovalocytes Slight; Platelet Estimate Adequate; Segmented Neutrophils 85 % (50-85); Total Cells Counted 100
[2018-08-29 05:31] LABS: Macrocytosis Slight
[2018-08-29 05:35] LABS: Calcium 8.6 MG/DL (8.5-10.1)
[2018-08-29 05:36] LABS: Osmolality,Calculated 322.8 MOS/KG (273-304)
[2018-08-29 05:40] LABS: Calcium 8.7 MG/DL (8.5-10.1); Osmolality,Calculated 322.8 MOS/KG (273-304); Potassium 3.7 MMOL/L (3.5-5.1)
[2018-08-29 06:20] LABS: Albumin 3.1 G/DL (3.4-5.0); Bilirubin,Total 1.19 MG/DL (0.2-1.0); Calcium 8.4 MG/DL (8.5-10.1); Total Protein 6.9 G/DL (6.4-8.3)
[2018-08-29 06:21] LABS: Osmolality,Calculated 321.8 MOS/KG (273-304); Potassium 3.7 MMOL/L (3.5-5.1)
[2018-08-29] MEDS: LEVOTHYROXINE 175 MCG TABLET PO SCH (06:38)
[2018-08-29] MEDS: POLYETHYLENE GLYCOL POWDER 17 GM PACK PO SCH (08:49)
[2018-08-29] MEDS: POTASSIUM CHLORIDE 20 MEQ/15 ML UDCUP PO SCH ×2 (08:49→21:19)
[2018-08-29] MEDS: FUROSEMIDE 40 MG/4 ML VIAL IV SCH (08:50)
[2018-08-29] MEDS: MAGNESIUM CHLORIDE 64 MG TABLET PO SCH ×3 (08:51→21:20)
[2018-08-29] MEDS: LANSOPRAZOLE ODT 30 MG TABLET PER TUBE SCH ×2 (08:51→21:20)
[2018-08-29] MEDS: MONTELUKAST 10 MG TABLET PO SCH ×2 (08:51→21:19)
[2018-08-29] MEDS: ALLOPURINOL 300 MG TABLET PO SCH (08:51)
[2018-08-29] MEDS: ASCORBIC ACID 500 MG TABLET PO SCH (08:51)
[2018-08-29] MEDS: ASPIRIN CHEW 81 MG TABLET PO SCH (08:51)
[2018-08-29] MEDS: FOLIC ACID 1 MG TABLET PO SCH (08:51)
[2018-08-29] MEDS: METOPROLOL SUCCINATE XL 100 MG TABLET PO SCH (08:52)
[2018-08-29] MEDS: SKIN HEALING OINT (AQUAPHOR) 50 GM TUBE TOP SCH (08:52)
[2018-08-29] MEDS: methylPREDNISolone SOD SUC 40 MG/1 ML VIAL IV SCH ×2 (11:00→22:16)
[2018-08-29] MEDS: FUROSEMIDE 80 MG TABLET PO SCH (16:03)
[2018-08-29] MEDS: POTASSIUM CHLORIDE 20 MEQ TABLET PO SCH (19:15)
[2018-08-29] MEDS: MULTIVITAMIN LIQUID (CENTRUM) 60 ML BOTTLE NG SCH (21:18)
[2018-08-29] MEDS: DOCUSATE SODIUM 100 MG/10 ML UDCUP PEG SCH (21:18)
[2018-08-29] MEDS: GABAPENTIN 600 MG TABLET PO SCH (21:19)
[2018-08-29] MEDS: OMEGA 3 ACID ETHYL ESTERS 1 GM CAPSULE PO SCH (21:19)
[2018-08-29] MEDS: ENOXAPARIN 40 MG/0.4 ML SYRINGE SUBCUT SCH (21:22)
[2018-08-30] MEDS: INSULIN REGULAR 100 UNIT/ML SUBCUT SCH ×4 (00:38→17:44)
[2018-08-30] MEDS: PROPOFOL 1,000 MG/100 ML BOTTLE IV SCH ×5 (00:39→21:28)
[2018-08-30] MEDS: MORPHINE 4 MG/1 ML VIAL IV PRN ×4 (01:10→15:20)
[2018-08-30] MEDS: MEROPENEM 1,000 MG in SODIUM CHLORIDE 0.9% 100 ML IV SCH ×2 (01:15→14:48)
[2018-08-30] MEDS: LEVALBUTEROL 0.63 MG/3 ML NEB RESP TX SCH ×4 (01:25→19:27)
[2018-08-30 04:25] LABS: ABG Base Excess 7.2 MMOL/L (-2.5-2.5); ABG HCO3 30.8 MMOL/L (20-26); ABG Oxygen Saturation 96.1 % (95-100); ABG PCO2 39.8 MM HG (35-48); ABG PH 7.506 (7.35-7.45); ABG PO2 88.7 MM HG (80-95); Allen Test Positive; Pt O2 Delivery Device Ventilator
[2018-08-30 04:56] LABS: Basophils % 0.2 % (0.0-0.8); Hematocrit 36.5 VOL% (42.0-52.0); Hemoglobin 11.6 GM/DL (14.0-18.0); Immature Granulocytes % 0.7 %; Immature Granulocytes Absolute 0.09 #; Lymphocytes # 0.5 10*3/uL (1.4-4.0); Lymphocytes % 3.8 % (21.2-54.2); Mean Corpuscular HGB Conc 31.8 GM/DL (32-36); Mean Corpuscular Hemoglobin 32 PG (27-34); Monocytes # 1.2 10*3/uL (0.11-0.8); Monocytes % 9.3 % (1.7-12.7); Neutrophils # 11.2 10*3/uL (1.4-7.4); Platelet Count 174 T/CUMM (130-400); Red Blood Count 3.58 MC/CUMM (3.8-5.5); Red Cell Distribution Width 19.1 % (9.3-17.3)
[2018-08-30 05:09] LABS: INR 1.1; PT Patient Result 11.6 SECS; Partial Thromboplastin Time 25.7 SECS (0-40)
[2018-08-30 05:19] LABS: Lymphocytes 2 % (20-55); Nucleated Red Blood Cells 1 (0-5); Segmented Neutrophils 94 % (50-85); Total Cells Counted 100
[2018-08-30 05:20] LABS: Hypochromasia 1+; Macrocytosis 1+; Target Cells Slight
[2018-08-30 05:29] LABS: Albumin 3.4 G/DL (3.4-5.0); Bilirubin,Total 1.3 MG/DL (0.2-1.0); Osmolality,Calculated 329.3 MOS/KG (273-304); Potassium 4.2 MMOL/L (3.5-5.1); Total Protein 7.3 G/DL (6.4-8.3)
[2018-08-30 05:36] LABS: Osmolality,Calculated 332.1 MOS/KG (273-304); Potassium 4.2 MMOL/L (3.5-5.1)
[2018-08-30 05:37] LABS: Calcium 9.1 MG/DL (8.5-10.1); Osmolality,Calculated 330.3 MOS/KG (273-304); Potassium 4.3 MMOL/L (3.5-5.1)
[2018-08-30] MEDS: LEVOTHYROXINE 175 MCG TABLET PO SCH (06:02)
[2018-08-30] MEDS ORDERED: MIDAZOLAM 2 MG/2 ML VIAL IV PRN (08:45)
[2018-08-30] MEDS ORDERED: MIDAZOLAM 2 MG/2 ML VIAL ONE (08:47)
[2018-08-30] MEDS ORDERED: METHOTREXATE 2.5 MG TABLET PO SCH (09:00)
[2018-08-30] MEDS: MAGNESIUM CHLORIDE 64 MG TABLET PO SCH ×2 (09:51→20:35)
[2018-08-30] MEDS: POTASSIUM CHLORIDE 20 MEQ/15 ML UDCUP PO SCH ×2 (09:53→20:14)
[2018-08-30] MEDS: POLYETHYLENE GLYCOL POWDER 17 GM PACK PO SCH (09:54)
[2018-08-30] MEDS: ASCORBIC ACID 500 MG TABLET PO SCH (09:54)
[2018-08-30] MEDS: MONTELUKAST 10 MG TABLET PO SCH ×2 (09:54→20:14)
[2018-08-30] MEDS: ASPIRIN CHEW 81 MG TABLET PO SCH (09:54)
[2018-08-30] MEDS: LANSOPRAZOLE ODT 30 MG TABLET PER TUBE SCH ×2 (09:54→20:14)
[2018-08-30] MEDS: METOPROLOL SUCCINATE XL 100 MG TABLET PO SCH (09:54)
[2018-08-30] MEDS: ALLOPURINOL 300 MG TABLET PO SCH (09:54)
[2018-08-30] MEDS: FOLIC ACID 1 MG TABLET PO SCH (09:55)
[2018-08-30] MEDS: FUROSEMIDE 80 MG TABLET PO SCH ×2 (09:55→16:25)
[2018-08-30] MEDS: SKIN HEALING OINT (AQUAPHOR) 50 GM TUBE TOP SCH (09:55)
[2018-08-30] MEDS: methylPREDNISolone SOD SUC 40 MG/1 ML VIAL IV SCH ×2 (11:51→22:29)
[2018-08-30] MEDS: amLODIPine 5 MG TABLET PO SCH (11:51)
[2018-08-30 12:14] LABS: ABG Base Excess 6.4 MMOL/L (-2.5-2.5); ABG HCO3 32.3 MMOL/L (20-26); ABG Oxygen Saturation 98.1 % (95-100); ABG PH 7.411 (7.35-7.45); ABG PO2 132.7 MM HG (80-95); ABG TCO2 33.9 MMOL/L (23-27)
[2018-08-30] MEDS: CLINDAMYCIN INJ 300 MG in PREMIX 1 EACH IV SCH ×2 (16:25→23:09)
[2018-08-30] MEDS: ENOXAPARIN 40 MG/0.4 ML SYRINGE SUBCUT SCH (20:13)
[2018-08-30] MEDS: DOCUSATE SODIUM 100 MG/10 ML UDCUP PEG SCH (20:13)
[2018-08-30] MEDS: OMEGA 3 ACID ETHYL ESTERS 1 GM CAPSULE PO SCH (20:14)
[2018-08-30] MEDS: GABAPENTIN 600 MG TABLET PO SCH (20:15)
[2018-08-30] MEDS: MULTIVITAMIN LIQUID (CENTRUM) 60 ML BOTTLE NG SCH ×2 (22:05→22:51)
[2018-08-31] MEDS: INSULIN REGULAR 100 UNIT/ML SUBCUT SCH ×4 (00:14→18:07)
[2018-08-31] MEDS: LEVALBUTEROL 0.63 MG/3 ML NEB RESP TX SCH ×4 (00:55→19:43)
[2018-08-31] MEDS: MEROPENEM 1,000 MG in SODIUM CHLORIDE 0.9% 100 ML IV SCH ×2 (01:26→15:37)
[2018-08-31] MEDS: PROPOFOL 1,000 MG/100 ML BOTTLE IV SCH ×5 (01:27→22:51)
[2018-08-31 04:18] LABS: Allen Test Positive; Pt O2 Delivery Device Ventilator
[2018-08-31 04:19] LABS: ABG Base Excess 6.9 MMOL/L (-2.5-2.5); ABG HCO3 29.4 MMOL/L (20-26); ABG Oxygen Saturation 97.2 % (95-100); ABG PCO2 34.7 MM HG (35-48); ABG PH 7.546 (7.35-7.45); ABG PO2 93.9 MM HG (80-95); ABG TCO2 30.5 MMOL/L (23-27)
[2018-08-31 04:22] LABS: Basophils % 0.1 % (0.0-0.8); Hematocrit 38.6 VOL% (42.0-52.0); Hemoglobin 11.9 GM/DL (14.0-18.0); Immature Granulocytes % 2.4 %; Immature Granulocytes Absolute 0.24 #; Lymphocytes # 0.6 10*3/uL (1.4-4.0); Mean Corpuscular HGB Conc 30.8 GM/DL (32-36); Mean Corpuscular Hemoglobin 32 PG (27-34); Mean Corpuscular Volume 102.9 FL (87-102); Monocytes # 1.3 10*3/uL (0.11-0.8); Monocytes % 13.5 % (1.7-12.7); Neutrophils # 7.7 10*3/uL (1.4-7.4); Platelet Count 175 T/CUMM (130-400); Red Blood Count 3.75 MC/CUMM (3.8-5.5); Red Cell Distribution Width 19.2 % (9.3-17.3); White Blood Count 9.8 T/CUMM (4-12)
[2018-08-31 04:32] LABS: INR 1.1; PT Patient Result 11.3 SECS; Partial Thromboplastin Time 24.1 SECS (0-40)
[2018-08-31 04:41] LABS: Calcium 9.4 MG/DL (8.5-10.1); Osmolality,Calculated 338.7 MOS/KG (273-304)
[2018-08-31 04:44] LABS: Prealbumin 26.9 MG/DL (20-40)
[2018-08-31 04:54] LABS: Platelet Estimate Normal
[2018-08-31 04:55] LABS: Polychromasia Few
[2018-08-31] MEDS: LEVOTHYROXINE 175 MCG TABLET PO SCH (05:48)
[2018-08-31] MEDS: CLINDAMYCIN INJ 300 MG in PREMIX 1 EACH IV SCH ×3 (06:01→22:56)
[2018-08-31] MEDS: DEXTROSE 5% 1,000 ML IV SCH (09:35)
[2018-08-31] MEDS: POLYETHYLENE GLYCOL POWDER 17 GM PACK PO SCH (09:38)
[2018-08-31] MEDS: POTASSIUM CHLORIDE 20 MEQ/15 ML UDCUP PO SCH ×2 (09:38→20:00)
[2018-08-31] MEDS: ASPIRIN CHEW 81 MG TABLET PO SCH (09:39)
[2018-08-31] MEDS: FOLIC ACID 1 MG TABLET PO SCH (09:39)
[2018-08-31] MEDS: METOPROLOL SUCCINATE XL 100 MG TABLET PO SCH (09:39)
[2018-08-31] MEDS: ALLOPURINOL 300 MG TABLET PO SCH (09:39)
[2018-08-31] MEDS: amLODIPine 5 MG TABLET PO SCH (09:40)
[2018-08-31] MEDS: LANSOPRAZOLE ODT 30 MG TABLET PER TUBE SCH ×2 (09:40→20:00)
[2018-08-31] MEDS: SKIN HEALING OINT (AQUAPHOR) 50 GM TUBE TOP SCH (09:40)
[2018-08-31] MEDS: ASCORBIC ACID 500 MG TABLET PO SCH (09:41)
[2018-08-31] MEDS: MAGNESIUM CHLORIDE 64 MG TABLET PO SCH ×2 (09:41→20:24)
[2018-08-31] MEDS: MONTELUKAST 10 MG TABLET PO SCH ×2 (09:41→20:00)
[2018-08-31] MEDS: methylPREDNISolone SOD SUC 40 MG/1 ML VIAL IV SCH ×2 (11:17→22:47)
[2018-08-31] MEDS ORDERED: FUROSEMIDE 40 MG TABLET PO SCH (16:00)
[2018-08-31] MEDS: MORPHINE 4 MG/1 ML VIAL IV PRN (16:19)
[2018-08-31] MEDS: GABAPENTIN 600 MG TABLET PO SCH (20:00)
[2018-08-31] MEDS: OMEGA 3 ACID ETHYL ESTERS 1 GM CAPSULE PO SCH (20:00)
[2018-08-31] MEDS: DOCUSATE SODIUM 100 MG/10 ML UDCUP PEG SCH (20:00)
[2018-08-31] MEDS: ENOXAPARIN 40 MG/0.4 ML SYRINGE SUBCUT SCH (20:00)
[2018-08-31] MEDS: MULTIVITAMIN LIQUID (CENTRUM) 60 ML BOTTLE NG SCH (20:01)
[2018-09-01] MEDS: INSULIN REGULAR 100 UNIT/ML SUBCUT SCH ×4 (00:05→17:46)
[2018-09-01] MEDS: LEVALBUTEROL 0.63 MG/3 ML NEB RESP TX SCH ×4 (00:54→19:30)
[2018-09-01] MEDS: MEROPENEM 1,000 MG in SODIUM CHLORIDE 0.9% 100 ML IV SCH ×2 (01:34→14:05)
[2018-09-01] MEDS: PROPOFOL 1,000 MG/100 ML BOTTLE IV SCH ×4 (03:17→21:01)
[2018-09-01 03:45] LABS: Basophils # 0.1 10*3/uL (0.0-0.2); Basophils % 0.4 % (0.0-0.8); Eosinophils % 0.1 % (0.00-10.9); Hematocrit 41.5 VOL% (42.0-52.0); Hemoglobin 12.7 GM/DL (14.0-18.0); Immature Granulocytes % 3.4 %; Immature Granulocytes Absolute 0.47 #; Lymphocytes # 0.9 10*3/uL (1.4-4.0); Lymphocytes % 6.5 % (21.2-54.2); Mean Corpuscular HGB Conc 30.6 GM/DL (32-36); Mean Corpuscular Hemoglobin 32 PG (27-34); Mean Corpuscular Volume 105.3 FL (87-102); Monocytes # 1.5 10*3/uL (0.11-0.8); Monocytes % 10.6 % (1.7-12.7); NRBC # 0.03 10*3/uL; Neutrophils # 11.1 10*3/uL (1.4-7.4); Platelet Count 156 T/CUMM (130-400); Red Blood Count 3.94 MC/CUMM (3.8-5.5); Red Cell Distribution Width 19.6 % (9.3-17.3)
[2018-09-01 04:10] LABS: ABG Base Excess 5.1 MMOL/L (-2.5-2.5); ABG HCO3 28.6 MMOL/L (20-26); ABG Oxygen Saturation 98.8 % (95-100); ABG PH 7.494 (7.35-7.45); ABG PO2 177.9 MM HG (80-95); ABG TCO2 29.7 MMOL/L (23-27); Allen Test Positive; Pt O2 Delivery Device Ventilator
[2018-09-01 04:29] LABS: Calcium 9.3 MG/DL (8.5-10.1); Potassium 5.5 MMOL/L (3.5-5.1)
[2018-09-01 04:43] LABS: Giant Platelets Few; Hypochromasia 1+; Platelet Estimate Normal
[2018-09-01 04:44] LABS: Ovalocytes 1+
[2018-09-01] MEDS: LEVOTHYROXINE 175 MCG TABLET PO SCH (05:11)
[2018-09-01] MEDS: DEXTROSE 5% 1,000 ML IV SCH ×2 (05:21→17:51)
[2018-09-01] MEDS: CLINDAMYCIN INJ 300 MG in PREMIX 1 EACH IV SCH ×3 (06:04→22:30)
[2018-09-01] MEDS: PANTOPRAZOLE 40 MG VIAL IV SCH (09:03)
[2018-09-01] MEDS: ASPIRIN CHEW 81 MG TABLET PO SCH (09:22)
[2018-09-01] MEDS: amLODIPine 5 MG TABLET PO SCH (09:22)
[2018-09-01] MEDS: POLYETHYLENE GLYCOL POWDER 17 GM PACK PO SCH (09:23)
[2018-09-01] MEDS: FUROSEMIDE 40 MG TABLET PO SCH (09:23)
[2018-09-01] MEDS: ASCORBIC ACID 500 MG TABLET PO SCH (09:23)
[2018-09-01] MEDS: ALLOPURINOL 300 MG TABLET PO SCH (09:24)
[2018-09-01] MEDS: METOPROLOL SUCCINATE XL 100 MG TABLET PO SCH (09:24)
[2018-09-01] MEDS: LANSOPRAZOLE ODT 30 MG TABLET PER TUBE SCH ×2 (09:25→20:03)
[2018-09-01] MEDS: MONTELUKAST 10 MG TABLET PO SCH ×2 (09:25→20:03)
[2018-09-01] MEDS: FOLIC ACID 1 MG TABLET PO SCH (09:25)
[2018-09-01] MEDS: POTASSIUM CHLORIDE 20 MEQ/15 ML UDCUP PO SCH ×2 (09:27→20:05)
[2018-09-01] MEDS: MAGNESIUM CHLORIDE 64 MG TABLET PO SCH ×2 (09:27→20:05)
[2018-09-01] MEDS: methylPREDNISolone SOD SUC 40 MG/1 ML VIAL IV SCH ×2 (11:27→21:36)
[2018-09-01] MEDS: SKIN HEALING OINT (AQUAPHOR) 50 GM TUBE TOP SCH (14:09)
[2018-09-01] MEDS: ENOXAPARIN 40 MG/0.4 ML SYRINGE SUBCUT SCH (20:03)
[2018-09-01] MEDS: DOCUSATE SODIUM 100 MG/10 ML UDCUP PEG SCH (20:03)
[2018-09-01] MEDS: OMEGA 3 ACID ETHYL ESTERS 1 GM CAPSULE PO SCH (20:03)
[2018-09-01] MEDS: MULTIVITAMIN LIQUID (CENTRUM) 60 ML BOTTLE NG SCH (20:03)
[2018-09-01] MEDS: GABAPENTIN 600 MG TABLET PO SCH (20:04)
[2018-09-02] MEDS: INSULIN REGULAR 100 UNIT/ML SUBCUT SCH ×4 (00:33→18:08)
[2018-09-02] MEDS: PROPOFOL 1,000 MG/100 ML BOTTLE IV SCH ×4 (01:03→20:01)
[2018-09-02] MEDS: LEVALBUTEROL 0.63 MG/3 ML NEB RESP TX SCH ×4 (01:14→19:45)
[2018-09-02] MEDS: MEROPENEM 1,000 MG in SODIUM CHLORIDE 0.9% 100 ML IV SCH ×2 (02:18→13:47)
[2018-09-02 03:23] LABS: ABG Base Excess 7.1 MMOL/L (-2.5-2.5); ABG HCO3 29.9 MMOL/L (20-26); ABG Oxygen Saturation 98.1 % (95-100); ABG PCO2 35.9 MM HG (35-48); ABG PH 7.538 (7.35-7.45); ABG PO2 120.3 MM HG (80-95)
[2018-09-02 04:34] LABS: Osmolality,Calculated 324.4 MOS/KG (273-304); Potassium 4.6 MMOL/L (3.5-5.1)
[2018-09-02] MEDS: DEXTROSE 5% 1,000 ML IV SCH ×3 (04:44→23:08)
[2018-09-02] MEDS: LEVOTHYROXINE 175 MCG TABLET PO SCH (05:30)
[2018-09-02 06:01] LABS: Basophils % 0.3 % (0.0-0.8); Eosinophils # 0.1 10*3/uL (0.0-0.87); Eosinophils % 0.6 % (0.00-10.9); Hematocrit 36.6 VOL% (42.0-52.0); Hemoglobin 11.5 GM/DL (14.0-18.0); Immature Granulocytes % 4.2 %; Immature Granulocytes Absolute 0.67 #; Lymphocytes # 1.2 10*3/uL (1.4-4.0); Lymphocytes % 7.3 % (21.2-54.2); Mean Corpuscular HGB Conc 31.4 GM/DL (32-36); Mean Corpuscular Hemoglobin 33 PG (27-34); Mean Corpuscular Volume 104.6 FL (87-102); Monocytes # 1.4 10*3/uL (0.11-0.8); Monocytes % 8.6 % (1.7-12.7); NRBC # 0.05 10*3/uL; Neutrophils # 12.7 10*3/uL (1.4-7.4); Platelet Count 151 T/CUMM (130-400); Red Cell Distribution Width 19.6 % (9.3-17.3)
[2018-09-02] MEDS: CLINDAMYCIN INJ 300 MG in PREMIX 1 EACH IV SCH ×3 (06:04→23:13)
[2018-09-02 06:35] LABS: Band Neutrophils 4 % (0-10); Hypochromasia Slight; Lymphocytes 8 % (20-55); Platelet Estimate Adequate; Segmented Neutrophils 83 % (50-85); Total Cells Counted 100
[2018-09-02] MEDS: SKIN HEALING OINT (AQUAPHOR) 50 GM TUBE TOP SCH (09:15)
[2018-09-02] MEDS: ASPIRIN CHEW 81 MG TABLET PO SCH (09:16)
[2018-09-02] MEDS: FOLIC ACID 1 MG TABLET PO SCH (09:16)
[2018-09-02] MEDS: FUROSEMIDE 40 MG TABLET PO SCH (09:16)
[2018-09-02] MEDS: POLYETHYLENE GLYCOL POWDER 17 GM PACK PO SCH (09:17)
[2018-09-02] MEDS: amLODIPine 5 MG TABLET PO SCH (09:18)
[2018-09-02] MEDS: MONTELUKAST 10 MG TABLET PO SCH ×2 (09:19→21:49)
[2018-09-02] MEDS: POTASSIUM CHLORIDE 20 MEQ/15 ML UDCUP PO SCH ×2 (09:19→23:14)
[2018-09-02] MEDS: LANSOPRAZOLE ODT 30 MG TABLET PER TUBE SCH ×2 (09:19→21:49)
[2018-09-02] MEDS: ALLOPURINOL 300 MG TABLET PO SCH (09:20)
[2018-09-02] MEDS: ASCORBIC ACID 500 MG TABLET PO SCH (09:20)
[2018-09-02] MEDS: MAGNESIUM CHLORIDE 64 MG TABLET PO SCH ×2 (09:20→23:14)
[2018-09-02] MEDS: METOPROLOL SUCCINATE XL 100 MG TABLET PO SCH (09:20)
[2018-09-02] MEDS: PANTOPRAZOLE 40 MG VIAL IV SCH (09:27)
[2018-09-02] MEDS: methylPREDNISolone SOD SUC 40 MG/1 ML VIAL IV SCH ×2 (11:04→21:50)
[2018-09-02] MEDS: ENOXAPARIN 40 MG/0.4 ML SYRINGE SUBCUT SCH (21:49)
[2018-09-02] MEDS: OMEGA 3 ACID ETHYL ESTERS 1 GM CAPSULE PO SCH (21:49)
[2018-09-02] MEDS: DOCUSATE SODIUM 100 MG/10 ML UDCUP PEG SCH (21:49)
[2018-09-02] MEDS: GABAPENTIN 600 MG TABLET PO SCH (21:49)
[2018-09-02] MEDS: MULTIVITAMIN LIQUID (CENTRUM) 60 ML BOTTLE NG SCH (21:50)
[2018-09-03] MEDS: LEVALBUTEROL 0.63 MG/3 ML NEB RESP TX SCH ×3 (00:31→13:10)
[2018-09-03] MEDS: PROPOFOL 1,000 MG/100 ML BOTTLE IV SCH ×4 (00:46→14:07)
[2018-09-03] MEDS: MEROPENEM 1,000 MG in SODIUM CHLORIDE 0.9% 100 ML IV SCH ×2 (02:04→14:09)
[2018-09-03 02:49] LABS: Basophils % 0.3 % (0.0-0.8); Eosinophils # 0.6 10*3/uL (0.0-0.87); Hematocrit 37.2 VOL% (42.0-52.0); Hemoglobin 11.6 GM/DL (14.0-18.0); Immature Granulocytes % 4.8 %; Lymphocytes # 1.8 10*3/uL (1.4-4.0); Lymphocytes % 12.2 % (21.2-54.2); Mean Corpuscular HGB Conc 31.2 GM/DL (32-36); Mean Corpuscular Hemoglobin 33 PG (27-34); Mean Corpuscular Volume 104.2 FL (87-102); Monocytes # 1.9 10*3/uL (0.11-0.8); Monocytes % 12.9 % (1.7-12.7); NRBC # 0.02 10*3/uL; Neutrophils # 9.6 10*3/uL (1.4-7.4); Neutrophils % 65.8 % (38.7-73.9); Platelet Count 130 T/CUMM (130-400); Red Blood Count 3.57 MC/CUMM (3.8-5.5); White Blood Count 14.6 T/CUMM (4-12)
[2018-09-03 02:51] LABS: Partial Thromboplastin Time 24.9 SECS (0-40)
[2018-09-03 02:59] LABS: Calcium 8.9 MG/DL (8.5-10.1); Osmolality,Calculated 316.4 MOS/KG (273-304); Potassium 4.2 MMOL/L (3.5-5.1)
[2018-09-03 03:17] LABS: Prealbumin 34.9 MG/DL (20-40)
[2018-09-03 03:31] LABS: ABG Base Excess 9.1 MMOL/L (-2.5-2.5); ABG HCO3 32.7 MMOL/L (20-26); ABG PCO2 38.9 MM HG (35-48); ABG PO2 64.5 MM HG (80-95); ABG TCO2 28.7 MMOL/L (23-27)
[2018-09-03 03:32] LABS: Eosinophils 7 % (0-10); Lymphocytes 15 % (20-55); Metamyelocytes 1 %; Myelocytes 3 %; Segmented Neutrophils 66 % (50-85)
[2018-09-03 03:33] LABS: Hypochromasia Slight; Target Cells Few
[2018-09-03 03:34] LABS: Ovalocytes 1+; Platelet Estimate Normal
[2018-09-03 03:35] LABS: Reactive Lymphocytes 1+; Total Cells Counted 100
[2018-09-03] MEDS: INSULIN REGULAR 100 UNIT/ML SUBCUT SCH ×3 (06:19→14:06)
[2018-09-03] MEDS: LEVOTHYROXINE 175 MCG TABLET PO SCH (06:20)
[2018-09-03] MEDS: CLINDAMYCIN INJ 300 MG in PREMIX 1 EACH IV SCH (07:00)
[2018-09-03] MEDS: DEXTROSE 5% 1,000 ML IV SCH ×2 (07:53→10:30)
[2018-09-03] MEDS: FUROSEMIDE 80 MG TABLET PO SCH (08:16)
[2018-09-03] MEDS: PANTOPRAZOLE 40 MG VIAL IV SCH (09:22)
[2018-09-03] MEDS: SKIN HEALING OINT (AQUAPHOR) 50 GM TUBE TOP SCH (09:23)
[2018-09-03] MEDS: METOPROLOL SUCCINATE XL 100 MG TABLET PO SCH (09:28)
[2018-09-03] MEDS ORDERED: METOPROLOL TARTRATE 50 MG TABLET PO SCH (09:30)
[2018-09-03] MEDS: FUROSEMIDE 40 MG TABLET PO SCH (09:54)
[2018-09-03] MEDS: MONTELUKAST 10 MG TABLET PO SCH (09:54)
[2018-09-03] MEDS: FOLIC ACID 1 MG TABLET PO SCH (09:54)
[2018-09-03] MEDS: ASCORBIC ACID 500 MG TABLET PO SCH (09:54)
[2018-09-03] MEDS: LANSOPRAZOLE ODT 30 MG TABLET PER TUBE SCH (09:54)
[2018-09-03] MEDS: ASPIRIN CHEW 81 MG TABLET PO SCH (09:54)
[2018-09-03] MEDS: methylPREDNISolone SOD SUC 40 MG/1 ML VIAL IV SCH (09:55)
[2018-09-03] MEDS: ALLOPURINOL 300 MG TABLET PO SCH (09:55)
[2018-09-03] MEDS: POLYETHYLENE GLYCOL POWDER 17 GM PACK PO SCH (09:55)
[2018-09-03 10:08] VITALS: BP 142/70
[2018-09-03] MEDS: amLODIPine 5 MG TABLET PO SCH (10:29)
[2018-09-03] MEDS ORDERED: FLUCONAZOLE INJ 200 MG in PREMIX 1 EACH IV SCH (11:00)
== END 2018-09-03 14:05 | DRG 207 ==
LOC: EDUNIT# → EDBD → N.ED 13:16 → N.EDINP 16:33 → SUATTDRO 16:33 → N.3E 19:00 → N.CC 08-27 09:58 → N.ICU 09-02 16:15
PROVIDERS: ADMIT Hospitalist; ATTEND Internal Medicine